=== PATIENT | male | born 1975 | race Caucasian/White ===

== ENCOUNTER 2017-06-02 18:07 | Emergency (ER) | payer MEDICAID, SELFPAY ==
[2017-06-02 18:10] VITALS: BP 149/76; PULSE 111; RESP 20; TEMP 36.9; O2SAT 99; BMI 21.5
--- NOTE | 2017-06-02 18:19 | CT_ITS ---
CT abdomen pelvis wo con CLINICAL INDICATION: Localize left lower quadrant pain with nausea ITS.REASON: abd pain ORDERING PHYSICIAN: Christie Nixon MD PATIENT AGE: 41 years COMPARISON: None TECHNIQUE: Axial images obtained with sagittal and coronal reformats. PROCEDURE: Oral Contrast: None IV Contrast: None . FINDINGS: The lung bases are clear. No focal liver lesion. The gallbladder, pancreas, right adrenal gland, and kidneys have an unremarkable unenhanced CT appearance. Left adrenal gland is somewhat bulky but maintains an adreniform shape. No intestinal obstruction or free air. There is reported appendectomy. No intestinal obstruction or free air is evident. There are scattered air-fluid levels within the small bowel is not significantly distended. There are are thickened small bowel loops in the pelvis. There is a small amount fluid in the pelvis. The findings may be related to ileitis or bowel disease. There are multiple unopacified bowel loops present within the abdomen/pelvis which could obscure or mimic pathology. If symptoms persists, consider repeating exam with IV and oral contrast administration No acute bony anomalies. IMPRESSION: Thickened distal small bowel loops which are in the pelvis consistent with ileitis or inflammatory bowel disease. Scattered small bowel air-fluid levels are present and may be due to ileus. There are multiple unopacified bowel loops present within the abdomen/pelvis which could obscure or mimic pathology. If symptoms persists, consider repeating exam with IV and oral contrast administration
--- NOTE | 2017-06-02 18:37 | HMH.EDABDPAI ---
ED Disposition Clinical Impression: Indirect inguinal hernia, Tobacco use disorder, Cough, Ileitis, Diarrhea Disposition: Still a Patient Condition on Discharge: Fair Instructions: DI for Acute Abdomen Prescriptions: Ondansetron [Zofran 4mg ODT] 4 mg SL Q6HP PRN #8 tab.rapdis PRN Reason: Nausea Dicyclomine HCl [Bentyl 10mg capsule] 10 mg PO Q8HP PRN #21 cap PRN Reason: Cramping metroNIDAZOLE [Flagyl] 500 mg PO Q8 #21 tab Referrals: Provider,Referral, MD [Primary Care Provider] - - Critical Care Critical Care Time: No Attestation: On , the high probability of a clinically significant, sudden or life threatening deterioration of the following system(s) required my full and direct attention, intervention and personal management. The time I documented below is in addition to time spent performing reported procedures but includes the following listed in this critical care notation. Medical Decision Making Vital Signs: 06/02/17 18:10 Temperature 98.5 F Temperature Source Oral Pulse Rate [Right Radial] 111 H Respiratory Rate 20 Blood Pressure [Right Arm] 149/76 Blood Pressure Mean [Right Arm] 100 02 Sat by Pulse Oximetry 99 - Lab Data Lab results reviewed: Yes: I reviewed the patient's lab results. Lab Results 06/02/17 18:19: Urine Color Yellow, Urine Appearance Clear, Urine pH 5.5, Ur Specific [place] >= 1.030, Urine Protein Negative, Urine Glucose (UA) Negative, Urine Ketones Negative, Urine Blood Negative, Urine Nitrate Negative, Urine Bilirubin 1+ A, Urine Urobilinogen 0.2, Ur Leukocyte Esterase Negative, Urine RBC Occasional, Urine WBC 5-10, Ur Squamous Epith Cells Occasional, Urine Bacteria Trace, Hyaline Casts Occasional, Urine Mucus 2+ 06/02/17 18:19: WBC 17.4 H, RBC 4.78, Hgb 14.8, Hct 45.0, MCV 94.0, MCH 30.9, MCHC 32.9, RDW 13.8, Plt Count 757 H, MPV 7.3 L, Neut % (Auto) 81.9 H, Lymph % (Auto) 11.8, [place] % (Auto) 5.6, Eos % (Auto) 0.2, Baso % (Auto) 0.5, Neut # (Auto) 14.3 H, Lymph # (Auto) 2.0, [place] # (Auto) 1.0, Eos # (Auto) 0.0, Baso # (Auto) 0.1 06/02/17 18:19: Sodium 137, Potassium 4.1, Chloride 99, Carbon Dioxide 29, Anion Gap 13.1, BUN 15, Creatinine 0.91, Estimated Creat Clear 102, Estimated GFR 91, Est GFR ( Amer) 111, Glucose 111 H, Calcium 9.0, Total Bilirubin 0.2, AST 21, ALT 59, Alkaline Phosphatase 142 H, Total Protein 7.5, Albumin 2.7 L, Globulin 4.8 H, Albumin/Globulin Ratio 0.6 L, Amylase 28, Lipase 63 L 06/02/17 18:19: Lactic Acid 1.4 Result diagrams: 06/02/17 18:19 06/02/17 18:19 Orders (Tests/Meds): ED MEDICATIONS Generic Name Dose Route Start Last Admin Trade Name Freq PRN Reason Stop Dose Admin Sodium Chloride 1,000 mls @ 999 mls/hr 06/02/17 18:45 06/02/17 18:35 Sod Chlor 0.9% 1000ml Bag IV 06/02/17 19:45 999 mls/hr .Q1H1M NATASHA Administration Metronidazole 100 mls @ 100 mls/hr 06/02/17 19:30 06/02/17 19:26 Flagyl 500mg/100ml Ivpb IV 06/16/17 19:29 100 mls/hr Q8H NATASHA Administration Protocol Discontinued Medications Generic Name Dose Route Start Last Admin Trade Name Freq PRN Reason Stop Dose Admin Sodium Chloride 500 mls @ 999 mls/hr 06/02/17 18:45 06/02/17 18:32 Sod Chlor 0.9% 1000ml Bag IV 06/02/17 19:15 Not Given .Q31M NATASHA Ketorolac Tromethamine 30 mg 06/02/17 18:21 06/02/17 18:31 Toradol 30mg/Ml Vial IV 06/02/17 18:22 30 mg ONCE ONE Administration Morphine Sulfate 2 mg 06/02/17 19:21 06/02/17 19:27 Morphine 2mg/Ml Syringe IV 06/02/17 19:22 2 mg ONCE ONE Administration Ondansetron HCl 4 mg 06/02/17 18:31 06/02/17 18:31 Zofran 4mg/2ml Vial IV 06/02/17 18:32 4 mg ONCE ONE Administration ORDERS Category Date Time Status CT abdomen pelvis wo con Stat Cat Scan 06/02/17 18:19 Taken Complete Blood Count Auto Diff Stat Lab 06/02/17 18:19 Results Diarrhea Panel, PCR Stat Lab 06/02/17 19:30 Ordered Blood Culture Stat Micro 06/02/17 18:19 Received - Zane Inqui
--- NOTE | 2017-06-02 18:40 | ED_ITS ---
ED Disposition Clinical Impression: Indirect inguinal hernia, Tobacco use disorder, Cough, Ileitis, Diarrhea Disposition: Still a Patient Condition on Discharge: Fair Instructions: DI for Acute Abdomen Prescriptions: Ondansetron [Zofran 4mg ODT] 4 mg SL Q6HP PRN #8 tab.rapdis PRN Reason: Nausea Dicyclomine HCl [Bentyl 10mg capsule] 10 mg PO Q8HP PRN #21 cap PRN Reason: Cramping metroNIDAZOLE [Flagyl] 500 mg PO Q8 #21 tab Referrals: Provider,Referral, MD [Primary Care Provider] - - Critical Care Critical Care Time: No Attestation: On , the high probability of a clinically significant, sudden or life threatening deterioration of the following system(s) required my full and direct attention, intervention and personal management. The time I documented below is in addition to time spent performing reported procedures but includes the following listed in this critical care notation. Medical Decision Making Vital Signs: 06/02/17 18:10 Temperature 98.5 F Temperature Source Oral Pulse Rate [Right Radial] 111 H Respiratory Rate 20 Blood Pressure [Right Arm] 149/76 Blood Pressure Mean [Right Arm] 100 02 Sat by Pulse Oximetry 99 - Lab Data Lab results reviewed: Yes: I reviewed the patient's lab results. Lab Results 06/02/17 18:19: Urine Color Yellow, Urine Appearance Clear, Urine pH 5.5, Ur Specific [place] >= 1.030, Urine Protein Negative, Urine Glucose (UA) Negative, Urine Ketones Negative, Urine Blood Negative, Urine Nitrate Negative, Urine Bilirubin 1+ A, Urine Urobilinogen 0.2, Ur Leukocyte Esterase Negative, Urine RBC Occasional, Urine WBC 5-10, Ur Squamous Epith Cells Occasional, Urine Bacteria Trace, Hyaline Casts Occasional, Urine Mucus 2+ 06/02/17 18:19: WBC 17.4 H, RBC 4.78, Hgb 14.8, Hct 45.0, MCV 94.0, MCH 30.9, MCHC 32.9, RDW 13.8, Plt Count 757 H, MPV 7.3 L, Neut % (Auto) 81.9 H, Lymph % ( Auto) 11.8, [place] % (Auto) 5.6, Eos % (Auto) 0.2, Baso % (Auto) 0.5, Neut # (Auto ) 14.3 H, Lymph # (Auto) 2.0, [place] # (Auto) 1.0, Eos # (Auto) 0.0, Baso # (Auto ) 0.1 06/02/17 18:19: Sodium 137, Potassium 4.1, Chloride 99, Carbon Dioxide 29, Anion Gap 13.1, BUN 15, Creatinine 0.91, Estimated Creat Clear 102, Estimated GFR 91, Est GFR ( Amer) 111, Glucose 111 H, Calcium 9.0, Total Bilirubin 0.2, AST 21, ALT 59, Alkaline Phosphatase 142 H, Total Protein 7.5, Albumin 2.7 L, Globulin 4.8 H, Albumin/Globulin Ratio 0.6 L, Amylase 28, Lipase 63 L 06/02/17 18:19: Lactic Acid 1.4 Result diagrams: 06/02/17 18:19 06/02/17 18:19 Orders (Tests/Meds): ED MEDICATIONS Generic Name Dose Route Start Last Admin Trade Name Freq PRN Reason Stop Dose Admin Sodium Chloride 1,000 mls @ 999 mls/hr 06/02/17 18:45 06/02/17 18:35 Sod Chlor 0.9% 1000ml Bag IV 06/02/17 19:45 999 mls/hr .Q1H1M NATASHA Administration Metronidazole 100 mls @ 100 mls/hr 06/02/17 19:30 06/02/17 19:26 Flagyl 500mg/100ml Ivpb IV 06/16/17 19:29 100 mls/hr Q8H NATASHA Administration Protocol Discontinued Medications Generic Name Dose Route Start Last Admin Trade Name Freq PRN Reason Stop Dose Admin Sodium Chloride 500 mls @ 999 mls/hr 06/02/17 18:45 06/02/17 18:32 Sod Chlor 0.9% 1000ml Bag IV 06/02/17 19:15 Not Given .Q31M NATASHA Ketorolac Tromethamine 30 mg 06/02/17 18:21 06/02/17 18:31 Toradol 30mg/Ml Vial IV 06/02/17 18:22 30 mg ONCE ONE Adm
[2017-06-02 18:44] LABS: Microscopic, Urine URINE MICROSCOPIC (MICROSCOPIC)
[2017-06-02 18:48] LABS: Appearance,Urine CLEAR (Clear); Blood, Urine Negative (Negative); Color,Urine YELLOW (Yellow); Glucose,Urine (UA) Negative (Negative); Ketones,Urine Negative (Negative); Leukocyte Esterase,Urine Negative (Negative); Nitrate,Urine Negative (Negative); PH,Urine 5.5 (5.0-8.5); Protein,Urine Negative (Negative); Specific Gravity, Urine >= 1.030 (1.005-1.030); Urobilinogen,Urine 0.2 EU/dl (0.2)
[2017-06-02 18:52] LABS: Bilirubin,Urine 1+ (Negative)
[2017-06-02 19:01] LABS: Basophils # 0.1 K/mm3 (0-0.2); Basophils % 0.5 % (0.1-2.0); Eosinophils % 0.2 % (0.1-12.0); Hemoglobin 14.8 g/dL (14.1-18.0); Lymphocytes % 11.8 K/mm3 (10-50); Mean Corpuscular HGB Conc 32.9 g/dL (31.8-35.4); Mean Corpuscular Hemoglobin 30.9 pg (27.0-31.2); Mean Platelet Volume 7.3 fl (7.4-10.4); Monocytes % 5.6 % (1.7-9.3); Neutrophils # 14.3 K/mm3 (1.8-7.8); Neutrophils % 81.9 % (37.0-80.0); Platelet Count 757 K/mm3 (142-424); Red Blood Count 4.78 M/mm3 (4.60-6.20); Red Cell Distribution Width 13.8 % (11.5-17.5); White Blood Count 17.4 K/mm3 (4.8-10.8)
[2017-06-02 19:04] LABS: MANUAL DIFFERENTIAL MANUAL DIFFERENTIAL (MANUAL DIFF)
[2017-06-02 19:05] LABS: Alanine Aminotransferase 59 U/L (12-78); Albumin Level 2.7 gm/dL (3.4-5.0); Albumin/Globulin Ratio 0.6 (1.1-1.8); Alkaline Phosphatase 142 U/L (46-116); Amylase 28 U/L (25-125); Anion Gap 13.1 mEq/L (5-15); Aspartate Amino Transferase 21 U/L (15-37); Bilirubin,Total 0.2 mg/dL (0.2-1.0); Blood Urea Nitrogen 15 mg/dL (7-18); Carbon Dioxide 29 mmol/L (21.0-32.0); Chloride 99 mmol/L (98-107); Creatinine Clearance Estimated 102 mL/min (0-300); Creatinine,Serum 0.91 mg/dL (0.70-1.30); Estimated Glomerular Filt Rate 91 ml/min (>60); GFR (African American) 111 ML/MIN (>60); Globulin 4.8 gm/dl (1.3-3.2); Glucose 111 mg/dL (74-106); Lipase 63 u/L (73-393); Potassium 4.1 mmoL/L (3.5-5.1); Sodium 137 mmol/L (136-145); Total Protein,Serum 7.5 gm/dL (6.4-8.2)
[2017-06-02 19:12] LABS: Lactic Acid 1.4 mmol/L (0.4-2.0)
[2017-06-02 19:14] LABS: Bacteria,Urine Trace /lpf; Hyaline Casts,Urine Occasional #/lpf (0); Mucus,Urine 2+ /lpf; RBC,Urine Occasional #/hpf (0-3); Squamous Epithelial Cell,Urine Occasional #/hpf (0-5)
[2017-06-02 19:35] VITALS: BP 132/78; PULSE 96; RESP 12; O2SAT 96
[2017-06-02 20:14] LABS: Anisocytosis 1+; Hypochromasia 1+; Lymphocytes % 11 % (10-50); Monocytes % 1 % (2-9); Neutrophils % 88 % (42-76); Platelet Estimate Normal; Total Cells Counted 100
[2017-06-02 21:18] VITALS: BP 135/73; PULSE 83; RESP 12; TEMP 37.1; O2SAT 98
== END 2017-06-02 21:21 | disposition still patient (30) ==
PROVIDERS: Emergency Provider Emergency Medicine; Family Provider Physician Assistant
DX: K40.90 Unilateral inguinal hernia, without obstruction or gangrene, not specified as recurrent (principal); R05 Cough; K52.9 Noninfective gastroenteritis and colitis, unspecified; R19.7 Diarrhea, unspecified; F17.200 Nicotine dependence, unspecified, uncomplicated; F12.10 Cannabis abuse, uncomplicated
CPT/HCPCS: 74176; 80053; 81001; 82150; 83605; 83690; 85007; 85025; 87040; 96365; 96366; 96367; 96374; 96375; 96376; 99283; J2405

== ENCOUNTER → 2017-06-04 15:38 | Outpatient (CLI) | payer MEDICAID, SELFPAY | PROVIDERS: Visit Provider Nurse Practitioner Family | DX: R19.7 Diarrhea, unspecified (principal) ==

== ENCOUNTER 2017-06-12 09:20 | Inpatient (IN) | payer MEDICAID, SELFPAY ==
[2017-06-12 09:28] VITALS: BMI 18.6
[2017-06-12 09:38] VITALS: BP 122/82; PULSE 95; RESP 18; TEMP 36.8; O2SAT 99; BMI 18.6
[2017-06-12 09:50] LABS: Basophils % 0.1 % (0.1-2.0); Eosinophils # 0.2 K/mm3 (0.0-0.4); Eosinophils % 0.8 % (0.1-12.0); Hematocrit 47.7 % (42.0-52.0); Hemoglobin 15.4 g/dL (14.1-18.0); Lymphocytes # 1.8 K/mm3 (0.7-4.5); Lymphocytes % 8.2 K/mm3 (10-50); Mean Corpuscular HGB Conc 32.3 g/dL (31.8-35.4); Mean Corpuscular Hemoglobin 30.6 pg (27.0-31.2); Mean Corpuscular Volume 94.7 fl (80-94); Mean Platelet Volume 7.2 fl (7.4-10.4); Monocytes % 4.4 % (1.7-9.3); Neutrophils # 19.1 K/mm3 (1.8-7.8); Neutrophils % 86.5 % (37.0-80.0); Platelet Count 627 K/mm3 (142-424); Red Blood Count 5.03 M/mm3 (4.60-6.20); Red Cell Distribution Width 14.1 % (11.5-17.5)
[2017-06-12 09:55] LABS: MANUAL DIFFERENTIAL MANUAL DIFFERENTIAL (MANUAL DIFF)
[2017-06-12 09:59] LABS: Amylase 28 U/L (25-125); Blood Urea Nitrogen 10 mg/dL (7-18); Carbon Dioxide 27 mmol/L (21.0-32.0); Chloride 97 mmol/L (98-107); Creatinine Clearance Estimated 82 mL/min (0-300); Creatinine,Serum 0.98 mg/dL (0.70-1.30); Estimated Glomerular Filt Rate 84 ml/min (>60); GFR (African American) 101 ML/MIN (>60); Glucose 119 mg/dL (74-106); Lipase 67 u/L (73-393); Sodium 134 mmol/L (136-145)
--- NOTE | 2017-06-12 10:11 | CT_ITS ---
CT abdomen pelvis w con COMPARISON: CT scan abdomen pelvis 06/02/2017 HISTORY: Abdominal pain, elevated white count previous CT scan suggesting possible inflammatory bowel disease TECHNIQUE: Multiaxial scans obtained from hemidiaphragms to the pelvic floor and were performed with IV and oral contrast. Sagittal coronal reformats were evaluated as well. FINDINGS: The lower lung hernandes are clear. The liver spleen stomach [place] gallbladder appear grossly normal. There is slight enlargement of the left adrenal gland maintaining its adreniform shape, the right adrenal gland is normal. The kidneys are normal in size and show symmetrical function and is no obstructive uropathy or other abnormality. There is good contrast opacification of the small bowel but the areas of possible bowel wall thickening of the distal small bowel seen on the previous study now appears essentially normal. There has been a previous appendectomy. There is contrast mixed with small amount stool in the ascending and transverse colon and partial descending colon. The urinary bladder is decompressed. The lumbar spine and bony pelvis appear normal. IMPRESSION: Apparent interval improvement in the appearance of the distal small bowel loops on the previous study, no definite findings to suggest ileitis at this time and no other significant abnormality is noted
[2017-06-12 10:35] LABS: Microscopic, Urine URINE MICROSCOPIC (MICROSCOPIC)
[2017-06-12 10:36] LABS: Lymphocytes % 10 % (10-50); Monocytes % 6 % (2-9); Neutrophils % 81 % (42-76); Total Cells Counted 100
[2017-06-12 10:37] LABS: Platelet Estimate Marked Increase; RBC Morphology Normal
[2017-06-12 10:40] LABS: Appearance,Urine CLOUDY (Clear); Blood, Urine Negative (Negative); Color,Urine YELLOW (Yellow); Glucose,Urine (UA) Negative (Negative); Ketones,Urine 1+ (Negative); Leukocyte Esterase,Urine Negative (Negative); Nitrate,Urine Negative (Negative); PH,Urine 5.5 (5.0-8.5); Protein,Urine 1+ (Negative); Specific Gravity, Urine >= 1.030 (1.005-1.030); Urobilinogen,Urine 0.2 EU/dl (0.2)
[2017-06-12 10:45] LABS: Bilirubin,Urine Negative (Negative)
[2017-06-12 10:50] LABS: Bacteria,Urine 4+ /lpf; WBC,Urine Occasional #/hpf (0-3)
[2017-06-12 10:51] LABS: Mucus,Urine 3+ /lpf
--- NOTE | 2017-06-12 10:51 | HMH.EDGENADL ---
ED Disposition Clinical Impression: Dehydration, Enteritis, Weight loss Disposition: Still a Patient Condition on Discharge: Fair Referrals: Jhony Roberson MD [Primary Care Provider] - - Critical Care Critical Care Time: No Attestation: On 06/12/17, the high probability of a clinically significant, sudden or life threatening deterioration of the following system(s) required my full and direct attention, intervention and personal management. The time I documented below is in addition to time spent performing reported procedures but includes the following listed in this critical care notation. Medical Decision Making Vital Signs: 06/12/17 09:38 Temperature 98.2 F Temperature Source Oral Pulse Rate [Right Radial] 95 H Respiratory Rate 18 Blood Pressure [Right Arm] 122/82 Blood Pressure Mean [Right Arm] 95 02 Sat by Pulse Oximetry 99 - Lab Data Lab Results 06/12/17 09:35: WBC 22.0 H*, RBC 5.03, Hgb 15.4, Hct 47.7, MCV 94.7 H, MCH 30.6, MCHC 32.3, RDW 14.1, Plt Count 627 H, MPV 7.2 L, Neut % (Auto) 86.5 H, Lymph % (Auto) 8.2 L, [place] % (Auto) 4.4, Eos % (Auto) 0.8, Baso % (Auto) 0.1, Neut # (Auto) 19.1 H, Lymph # (Auto) 1.8, [place] # (Auto) 1.0, Eos # (Auto) 0.2, Baso # (Auto) 0.0, Total Counted 100, Neutrophils % (Manual) 81 H, Lymphocytes % (Manual) 10, Atypical Lymphs % 3.0, Monocytes % (Manual) 6, Platelet Estimate Marked increase, RBC Morphology Normal 06/12/17 09:35: Sodium 134 L, Potassium 4.0, Chloride 97 L, Carbon Dioxide 27, Anion Gap 14.0, BUN 10, Creatinine 0.98, Estimated Creat Clear 82, Estimated GFR 84, Est GFR ( Amer) 101, Glucose 119 H, Amylase 28, Lipase 67 L 06/12/17 09:35: Total Bilirubin 0.2, Direct Bilirubin 0.1, AST 24, ALT 62, Alkaline Phosphatase 127 H, Total Protein 7.7, Albumin 3.0 L 06/12/17 09:35: ESR 37 H 06/12/17 10:25: Urine Color Yellow, Urine Appearance Cloudy, Urine pH 5.5, Ur Specific [place] >= 1.030, Urine Protein 1+, Urine Glucose (UA) Negative, Urine Ketones 1+, Urine Blood Negative, Urine Nitrate Negative, Urine Bilirubin Negative, Urine Urobilinogen 0.2, Ur Leukocyte Esterase Negative, Urine RBC None, Urine WBC Occasional, Ur Squamous Epith Cells 3-5, Urine Bacteria 4+, Urine Mucus 3+ Result diagrams: 06/12/17 09:35 06/12/17 09:35 Orders (Tests/Meds): ED MEDICATIONS Discontinued Medications Generic Name Dose Route Start Last Admin Trade Name Freq PRN Reason Stop Dose Admin Diatrizoate Meglum/Diatrizoate Sod 30 ml 06/12/17 10:15 06/12/17 10:15 Gastrografin 66%-10% 30ml PO 06/12/17 10:16 30 ml ONCE ONE Administration Iopamidol 75 ml 06/12/17 12:19 06/12/17 12:20 [id number]; 75ml Vial IV 06/12/17 12:20 75 ml ONCE ONE Administration Morphine Sulfate 4 mg 06/12/17 10:51 06/12/17 11:00 Morphine 4mg/Ml Syringe IV 06/12/17 10:52 4 mg ONCE ONE Administration Morphine Sulfate 4 mg 06/12/17 11:51 06/12/17 11:54 Morphine 4mg/Ml Syringe IV 06/12/17 11:52 4 mg ONCE ONE Administration Ondansetron HCl 4 mg 06/12/17 10:51 06/12/17 11:00 Zofran 4mg/2ml Vial IV 06/12/17 10:52 4 mg ONCE ONE Administration Sodium Chloride 1,000 ml 06/12/17 10:51 06/12/17 11:00 Sod Chlor 0.9% 1000ml Bag IV 06/12/17 10:52 1,000 ml BOLUS ONE Administration Sodium Chloride 10 ml 06/12/17 12:19 06/12/17 12:20 Rad-Saline Flush 10ml Syringe IV 06/12/17 12:20 10 ml ONCE ONE Administration ORDERS Category Date Time Status CT abdomen pelvis w con Stat Cat Scan 06/12/17 10:11 Taken Diarrhea Panel, PCR Stat Lab 06/12/17 10:52 Ordered Urine Culture Stat Micro 06/12/17 10:25 Received - Zane Inquiry Pt receiving controlled substance: Yes Zane was queried for this patient: No Reason not queried -: Emergent pt cond-no time Risks and benefits of using a controlled substance: were not discussed with pt by me Medical Decision Making Narrative: 1:04 PM: I have discussed the case with Dorita Ortiz,
[2017-06-12 10:52] LABS: Alanine Aminotransferase 62 U/L (12-78); Alkaline Phosphatase 127 U/L (46-116); Aspartate Amino Transferase 24 U/L (15-37); Bilirubin,Direct 0.1 mg/dL (0.0-0.2); Bilirubin,Total 0.2 mg/dL (0.2-1.0); Total Protein,Serum 7.7 gm/dL (6.4-8.2)
[2017-06-12 11:31] LABS: Erythrocyte Sedimentation Rate 37 mm/hr (0-15)
[2017-06-12 13:23] VITALS: BMI 19.1
--- NOTE | 2017-06-12 13:30 | PC.NURSE ---
Pt started to get up and walk outside to go smoke. Informed pt of smoking policy and that this is a non smoking facility. Dr Pollock ordered 21mg Nicotine Patch for patient. Placed on patient at this time. At this time, patient is agreeable to smoking policy and to wear the patch.
[2017-06-12 13:42] LABS: T4 (Thyroxine) 11.2 ug/dl (4.7-13.3); Thyroid Stimulating Hormone 1.43 uIU/ml (0.358-3.740); Triiodothryronine (T3) Uptake 36 % (31-39)
[2017-06-12 14:02] VITALS: BP 145/88; PULSE 80; RESP 16; TEMP 36.9; O2SAT 97
[2017-06-12 14:16] VITALS: BP 110/69; PULSE 78; RESP 16; TEMP 36.9; O2SAT 99
[2017-06-12 16:00] VITALS: BP 120/78; PULSE 80; RESP 18; TEMP 36.7; O2SAT 99
--- NOTE | 2017-06-12 17:46 | PC.NURSE ---
PT IS ALERT AND ORIENTED X4. VSS. NO S/S OF DISTRESS NOTED. IV IS SECURE, PATENT AND INFUSING IVF. PAIN MEDICATION ADMINISTERED PER MAR. NO C/O N/V/D. PT EDUCATED ON NEED FOR STOOL SAMPLE. SAFETY MEASURES IN PLACE. WILL CONTINUE TO MONITOR.
[2017-06-12 20:00] VITALS: BP 104/62; PULSE 83; RESP 18; TEMP 37; O2SAT 98
[2017-06-12 21:00] VITALS: O2SAT 98
[2017-06-13 04:00] VITALS: BP 98/63; PULSE 78; RESP 16; TEMP 37.1; O2SAT 98
--- NOTE | 2017-06-13 04:26 | PC.NURSE ---
PATIENT HAS SLEPT ON AND OFF THIS SHIFT. HE HAS C/O ABDOMINAL PAIN X2 THIS SHIFT AND RECEIVED PRN PAIN MEDICATION WHICH HE STATED WAS EFFECTIVE. NO C/O NAUSEA/VOMITING. AMBULATES IN ROOM TO BATHROOM INDEPENDENTLY. NO OTHER PROBLEMS NOTED AT THIS TIME. VSS. WILL CONTINUE TO MONITOR. SAFETY MEASURES IN PLACE, CALL LIGHT IN REACH.
[2017-06-13 08:00] VITALS: BP 135/81; PULSE 89; RESP 18; TEMP 36.9; O2SAT 100
--- NOTE | 2017-06-13 08:44 | HMH.HP ---
*Admission Date: 06/12/17 *Chief complaint: abd pain *History of present illness: this wm with abd pain with nonbldy diarrhea with dec po intake and had not improved as op rx-e patient has been sick for 4-6 weeks with abdominal pain, generalized, and diarrhea. He says no blood in the diarrhea. No vomiting. No fever. Weight loss of approximately 25 pounds. Was recently seen in the emergency department 06/02/17 for these symptoms. He had a CT scan that showed ileitis and a hernia. He has been treated with Flagyl. He has followed up with his primary care provider. Symptoms have worsened. He is having much difficulty eating. Eating causes increased abdominal pain and diarrhea. [facility] [place] History I have reviewed the patient's past medical history: Yes Medical History: Reports:: Seizures Denies:: Cancer, Diabetes Mellitus Type 1, Diabetes Mellitus Type 2, MRSA Other Surgeries: Yes: Appendectomy Amputation: No Fractures: Yes - *Social History Educational Level: Attended High School Smoking Status: Current every day smoker Tobacco Type: cigarettes # Packs/Day (cigarettes): 1 #Yrs smoked (if former smoker): 2 Alcohol Intake: never Alcohol Intake Frequency:: a few times a month Substance Use Type: marijuana Occupational Status: unemployed Housing: house Household Members: spouse - Psychiatric History Expresses thoughts of harming self/others: None Suicide Plan Description: No Plan Review of Systems - Review of Systems Review of systems:: pertinent systems reviewed and negative unless documented below - Constitutional Reports fatigue, Reports lack of energy, Reports weight loss, Denies fever(s) - Eyes Denies change in vision - ENT Denies sore throat - *Cardiovascular Denies chest pain at rest - *Respiratory Denies cough - *Gastrointestinal Reports nausea - *Genitourinary Denies blood in urine - *Musculoskeletal Reports body aches, Denies joint pain - Integumentary/Breasts Denies rash - *Neurologic Reports weakness, Denies confusion, Denies localized weakness - Psychiatric Denies anxiety Meds Home Medications Medication Instructions Recorded Confirmed Type Phenytoin Sodium Extended 300 mg PO BID 06/12/17 06/12/17 History [Dilantin] Allergies Allergy/AdvReac Type Severity Reaction Status Date / Time No Known Allergies Allergy Verified 06/12/17 09:44 Exam Vital signs and Labs for Last 24 Hours: Temp Pulse Resp BP Pulse Ox 98.5 F 89 18 135/81 100 06/13/17 08:00 06/13/17 08:00 06/13/17 08:00 06/13/17 08:00 06/13/17 08:00 I & O for Last 24 hours: Intake & Output 06/10/17 06/11/17 06/12/17 06/13/17 11:59 11:59 11:59 11:59 Intake Total 1863 / 1863 Balance 1863 / 1863 Weight 129 lb 4.112 oz - Constitutional no acute distress, thin - *Routine HEENT Exam Head: Present: normocephalic, atraumatic Eye: Present: EOMI, PERRL. Absent: conjunctival icterus ENT: Present: mucous membranes dry - *Routine Neck Exam Absent: JVD - *Routine Respiratory Exam Present: CTA bilaterally - *Routine Cardiovascular Exam Present: RRR. Absent: murmur - *Routine Abdominal Exam Present: soft, tenderness. Absent: rebound - *Routine Extremities Exam Absent: edema - *Routine Skin Exam Present: dry - *Routine Neurological Exam Present: alert, oriented X3, CN II-XII intact - Routine Psychiatric Exam Present: normal affect Assessment and Plan (1) Enteritis Current visit: Yes Status: Acute Category: Medical Code(s): K52.9 - Noninfective gastroenteritis and colitis, unspecified (2) Tobacco use disorder Current visit: No Status: Acute Category: Medical Code(s): F17.200 - Nicotine dependence, unspecified, uncomplicated
[2017-06-13 08:59] LABS: Basophils % 0.2 % (0.1-2.0); Eosinophils # 0.2 K/mm3 (0.0-0.4); Hematocrit 43.9 % (42.0-52.0); Lymphocytes # 2.1 K/mm3 (0.7-4.5); Lymphocytes % 11.7 K/mm3 (10-50); Mean Corpuscular HGB Conc 31.9 g/dL (31.8-35.4); Mean Corpuscular Hemoglobin 30.5 pg (27.0-31.2); Mean Corpuscular Volume 95.5 fl (80-94); Mean Platelet Volume 7.2 fl (7.4-10.4); Monocytes % 5.9 % (1.7-9.3); Neutrophils # 14.3 K/mm3 (1.8-7.8); Neutrophils % 81.2 % (37.0-80.0); Platelet Count 563 K/mm3 (142-424); White Blood Count 17.6 K/mm3 (4.8-10.8)
[2017-06-13 09:01] LABS: MANUAL DIFFERENTIAL MANUAL DIFFERENTIAL (MANUAL DIFF)
[2017-06-13 09:02] VITALS: O2SAT 95
[2017-06-13 09:13] LABS: Anion Gap 11.3 mEq/L (5-15); Blood Urea Nitrogen 6 mg/dL (7-18); Carbon Dioxide 29 mmol/L (21.0-32.0); Chloride 101 mmol/L (98-107); Creatinine Clearance Estimated 77 mL/min (0-300); Creatinine,Serum 1.04 mg/dL (0.70-1.30); Estimated Glomerular Filt Rate 78 ml/min (>60); GFR (African American) 95 ML/MIN (>60); Glucose 125 mg/dL (74-106); Potassium 4.3 mmoL/L (3.5-5.1); Sodium 137 mmol/L (136-145)
[2017-06-13 10:41] LABS: Eosinophils % 2 % (0-3); Lymphocytes % 16 % (10-50); Monocytes % 3 % (2-9); Neutrophils % 77 % (42-76); Total Cells Counted 100
[2017-06-13 10:45] LABS: Poikilocytosis 1+; Stomatocytes 1+
[2017-06-13 10:46] LABS: Platelet Estimate Moderate Increase
[2017-06-13 11:12] LABS: Adenovirus F 40/41, stool Not Detected (NotDetected); Astrovirus Not Detected (NotDetected); Campylobacter Not Detected (NotDetected); Clostridium Difficile A/B, PCR Not Detected (NotDetected); Cryptosporidium Not Detected (NotDetected); Cyclospora Cayetanesis Not Detected (NotDetected); Entamoeba histolytica Not Detected (NotDetected); Enteroaggregative E coli Not Detected (NotDetected); Enterotoxigenic E coli Not Detected (NotDetected); Giardia lamblia Not Detected (NotDetected); Norovirus Not Detected (NotDetected); Plesimonas Shigalloides, PCR Not Detected (NotDetected); Rotavirus A Not Detected (NotDetected); Salmonella, PCR Not Detected (NotDetected); Sapovirus Not Detected (NotDetected); Shiga-like toxin E coli Not Detected (NotDetected); Shigella Enterovasive E coli Not Detected (NotDetected); Vibrio Cholerae Not Detected (NotDetected); Vibrio, PCR Not Detected (NotDetected); Yersinia Entercolitica, PCR Not Detected (NotDetected)
--- NOTE | 2017-06-13 12:10 | HMH.PHAVTE ---
[facility] Pharm[facility] VTE Monitoring - Patient Demographics Admission date: 06/12/17 Report Date: 06/13/17 Time: 12:10 Allergies/Adverse Reactions: Patient Allergies No Known Allergies Allergy (Verified 06/12/17 09:44) Height: 1.75 m Weight: 58.63 kg Patient Problems: Current Active Problems Dehydration (Acute) Enteritis (Acute) Weight loss (Acute) - VTE Risk Labs: VTE Related Lab Results Hgb 14.0 g/dL (14.1-18.0) L 06/13/17 08:50 Hct 43.9 % (42.0-52.0) 06/13/17 08:50 Plt Count 563 K/mm3 (142-424) H 06/13/17 08:50 BUN 6 mg/dL (7-18) L D 06/13/17 08:50 Creatinine 1.04 mg/dL (0.70-1.30) 06/13/17 08:50 Estimated Creat Clear 77 mL/min (0-300) 06/13/17 08:50 Was VTE Risk Assessment Performed: Yes VTE Score: 1 VTE Risk Level: Very Low Risk - Prophylaxis VTE Prophylaxis Ordered?: Yes Types of VTE Prophylaxis: TEDS Knee High Location of Applied Device: Bilateral Lower Extremeties
[2017-06-13 13:05] LABS: Enteropathogenic E coli Detected (NotDetected)
[2017-06-13 15:52] VITALS: BP 134/78; PULSE 83; RESP 18; TEMP 37.1; O2SAT 99
[2017-06-13 20:25] VITALS: O2SAT 99
[2017-06-14] VITALS: BP 136/88; PULSE 83; RESP 20; TEMP 37.4; O2SAT 97
--- NOTE | 2017-06-14 05:13 | PC.NURSE ---
0200 PT CHECK IS CHARTED UNDER 0300, D/T TIME CHANGE. Siri CONWAY, SRNA
--- NOTE | 2017-06-14 05:51 | PC.NURSE ---
PT HAS C/O OF ABDOMINAL DISCOMFORT THIS SHIFT. HE STATES IT IS A CRAMPING, CONSTANT PAIN. MD WAS NOTIFIED AND PAIN MEDICATION WAS CHANGED FROM MORPHINE TO STADOL. PT IS CONCERNED ABOUT HIS ANIMALS AT HOME AND IS CONCERNED ABOUT HOW LONG HE WILL HAVE TO STAY. HE IS THINKING ABOUT GOING HOME. MD IS AWARE. FAMILY IS AT BEDSIDE. NO OTHER CONCERNS AT THIS TIME. WILL CONTINUE TO MONITOR.
[2017-06-14 07:51] VITALS: BP 122/82; PULSE 74; RESP 18; TEMP 37; O2SAT 99
[2017-06-14 07:58] LABS: Eosinophils # 0.1 K/mm3 (0.0-0.4); Mean Platelet Volume 6.8 fl (7.4-10.4); Red Cell Distribution Width 14.1 % (11.5-17.5)
[2017-06-14 08:00] VITALS: O2SAT 98
[2017-06-14 08:07] LABS: Basophils % 0.1 % (0.1-2.0); Eosinophils % 0.3 % (0.1-12.0); Hematocrit 38.5 % (42.0-52.0); Lymphocytes # 1.7 K/mm3 (0.7-4.5); Lymphocytes % 9.8 K/mm3 (10-50); Mean Corpuscular HGB Conc 32.1 g/dL (31.8-35.4); Mean Corpuscular Hemoglobin 30.2 pg (27.0-31.2); Mean Corpuscular Volume 93.9 fl (80-94); Monocytes # 0.8 K/mm3 (0.1-1.0); Monocytes % 4.7 % (1.7-9.3); Neutrophils # 14.7 K/mm3 (1.8-7.8); Neutrophils % 85.1 % (37.0-80.0); Platelet Count 520 K/mm3 (142-424); White Blood Count 17.2 K/mm3 (4.8-10.8)
[2017-06-14 08:09] LABS: MANUAL DIFFERENTIAL MANUAL DIFFERENTIAL (MANUAL DIFF)
[2017-06-14 08:27] LABS: Lymphocytes % 4 % (10-50); Monocytes % 6 % (2-9); Neutrophils % 90 % (42-76); RBC Morphology Normal; Total Cells Counted 100
[2017-06-14 08:28] LABS: Platelet Estimate Slight Increase
[2017-06-14 08:40] LABS: Hemoglobin 12.4 g/dL (14.1-18.0)
--- NOTE | 2017-06-14 08:44 | CT_ITS ---
CT abdomen pelvis w con Ordering Physician: Jhony Roberson MD Patient Age: 41 years: Male HISTORY: ITS.REASON: abd pain - proressive Lower abdominal pain 3 days. Pain after eating . TECHNIQUE: Helical CT scanning performed through the abdomen pelvis with diluted Gastroview oral contrast as well as IV contrast 75 cc [id number] utilized. From the acquired images reconstructed axial, coronal and sagittal images performed on CT workstation COMPARISON : Previous CT abdomen pelvis 06/12/17 with contrast; & and 06/02/2017 without contrast. FINDINGS Lung bases clear heart normal size Abdomen. Liver unremarkable. The pancreas and spleen unremarkable. Adrenals unremarkable. Kidneys enhance normally no obstruction or calculi.. GI TRACT.: Enteric contrast is seen throughout the entire large and small bowel.. Small bowel upper normal caliber a most generous at pelvis and the large bowel is mildly distended with prominent liquid stool seen throughout including liquid stool at rectum.-Would anticipate episode of severe diarrhea in part due to the Gastroview contrast cathartic effect. When compared to 06/12/2017 there is increased free fluid seen in the abdomen and pelvis today. We began superiorly where note thin collection of at inferior aspect of Morison's pouch and continuing along the right lobe of liver, with scant wispy fluid along right paracolic gutter. There is also hint of trace scant fluid at just inferior to left left kidney & spleen, faintly outlining and tracking along left paracolic gutter. At the mid and upper abdomen the fat between adjacent to the bowel loops is fairly well-defined and we see no wall thickening. However with today's study bowel loops are at the lower pelvis is is obscured..-I suspect this mainly reflects increased fluid between the bowel loops in the pelvis along with increased mesenteric edema.. May also reflect some wall thickening these borderline distended distal small bowel loops here throughout the lower pelvis. We do see some areas of minimal free fluid at the lower pelvic basin-for example is seen to the left pelvic basin axial image 100-98. Included pelvic basin also evident on sagittal image 58 the left; and 45 to the right left.. There is generalized mild edema throughout the mesentery throughout the entire abdomen and pelvis. The terminal ileum itself does not appear to be thickened or inflamed . The appendix is not discretely visualized but I see no focal findings ingested appendicitis. Aorta with circumferential low-density wall thickening most likely reflecting diffuse low-density atheromatous plaque. However on today's study the wall the aorta is less well delineated but this may be due to technique. I would suggest a follow-up CT with contrast within the next 2 face 3 days days to the again evaluate this patient if no improvement. Possibly with a higher volume contrast to better evaluate aorta. IMPRESSION========= 1. Progressive free fluid abdomen and pelvis since 06/12/2017:. Scant Fluid now evident at inferior Morison's pouch, with trace fluid along the gutters bilaterally; & increased throughout pelvic basin bilateral and between pelvic bowel loops.. Suspect fluid between bowel loops, along with mesentery edemaobscure the fat between bowel loops now at pelvis. (with possibly mild bowel wall thickening at at these pelvic small bowel loops as well) . 2..Slight increased diffuse mesenteric edema is slight increase since 06/12/2017 3. Prominent liquid stool rectum and throughout entire mildly distended large bowel.Impending severe diarrhea anticipated. 4. Note: terminal ileum itself does not appear to be thickened or specifically inflamed. The Appendix is not discretely visualized on today but I see no good evidence of
--- NOTE | 2017-06-14 08:46 | HMH.ACPN2 ---
Internal Medicine - PN: Subj *Date: 06/14/17 *Time: 08:46 Interval history: still with abd pain and dec po intake - has loose stool but no diarrhea Exam Vital signs and Labs for Last 24 Hours: Temp Pulse Resp BP Pulse Ox 98.6 F 74 18 122/82 99 06/14/17 07:51 06/14/17 07:51 06/14/17 07:51 06/14/17 07:51 06/14/17 07:51 Laboratory Results - last 24 hr 06/13/17 08:50: WBC 17.6 H, RBC 4.60, Hgb 14.0 L, Hct 43.9, MCV 95.5 H, MCH 30.5, MCHC 31.9, RDW 14.0, Plt Count 563 H, MPV 7.2 L, Neut % (Auto) 81.2 H, Lymph % (Auto) 11.7, [place] % (Auto) 5.9, Eos % (Auto) 1.0, Baso % (Auto) 0.2, Neut # (Auto) 14.3 H, Lymph # (Auto) 2.1, [place] # (Auto) 1.0, Eos # (Auto) 0.2, Baso # (Auto) 0.0, Total Counted 100, Neutrophils % (Manual) 77 H, Lymphocytes % (Manual) 16, Atypical Lymphs % 2.0, Monocytes % (Manual) 3, Eosinophils % (Manual) 2, Platelet Estimate Moderate increase, Poikilocytosis 1+, Stomatocytes 1+ 06/13/17 08:50: Sodium 137, Potassium 4.3, Chloride 101, Carbon Dioxide 29, Anion Gap 11.3, BUN 6 L D, Creatinine 1.04, Estimated Creat Clear 77, Estimated GFR 78, Est GFR ( Amer) 95, Glucose 125 H, Phenytoin 4.0 L 06/13/17 11:00: Stl Aeromonas (PCR) Not detected, Stl C. cayetanensis PCR Not detected, Stool Rotavirus (PCR) Not detected, Stl Adenov F 40/41 PCR Not detected, Stool Astrovirus (PCR) Not detected, Stool Campylobacter PCR Not detected, Stl C.difficile Tox PCR Not detected, Stool Cryptosporidium PCR Not detected, Stl E.coli Shiga Tox PCR Not detected, Stool E coli O157 PCR Not detected, Stl Enterotoxigenic E PCR Not detected, Stool EPEC (PCR) Detected A, Stool EAEC (PCR) Not detected, Stl E. histolytica PCR Not detected, Stool Giardia Lamblia PCR Not detected, Stool Salmonella PCR Not detected, Stool Sapovirus (PCR) Not detected, Stl P. shigelloides PCR Not detected, Stl Shigella/EIEC PCR Not detected, St Y.enterocolitica PCR Not detected, Stool Vibrio (PCR) Not detected, Stl Vibrio cholerae PCR Not detected, Stl Norovirus GI/GII PCR Not detected 06/14/17 07:45: WBC 17.2 H, RBC 4.10 L, Hgb 12.4 L D, Hct 38.5 L, MCV 93.9, MCH 30.2, MCHC 32.1, RDW 14.1, Plt Count 520 H, MPV 6.8 L, Neut % (Auto) 85.1 H, Lymph % (Auto) 9.8 L, [place] % (Auto) 4.7, Eos % (Auto) 0.3, Baso % (Auto) 0.1, Neut # (Auto) 14.7 H, Lymph # (Auto) 1.7, [place] # (Auto) 0.8, Eos # (Auto) 0.1, Baso # (Auto) 0.0, Total Counted 100, Neutrophils % (Manual) 90 H, Lymphocytes % (Manual) 4 L, Monocytes % (Manual) 6, Platelet Estimate Slight increase, RBC Morphology Normal I & O for Last 24 hours: Intake & Output 06/11/17 06/12/17 06/13/17 06/14/17 11:59 11:59 11:59 12:59 Intake Total 2062 / 2372 Balance 2062 / 2372 Weight 129 lb 4.112 oz 129 lb 4.112 oz - Constitutional no acute distress - *Routine HEENT Exam Head: Present: normocephalic Eye: Present: EOMI, PERRL. Absent: conjunctival icterus ENT: Present: mucous membranes dry - *Routine Neck Exam Present: supple - *Routine Respiratory Exam Absent: respiratory distress - *Routine Cardiovascular Exam Present: RRR - *Routine Abdominal Exam Present: soft, tenderness. Absent: distended, rebound - *Routine Extremities Exam Absent: calf tenderness - *Routine Skin Exam Present: intact - *Routine Neurological Exam Present: alert, oriented X3, CN II-XII intact - Routine Psychiatric Exam Present: normal affect Assessment and Plan (1) Enteritis Current visit: Yes Status: Acute Category: Medical Code(s): K52.9 - Noninfective gastroenteritis and colitis, unspecified (2) Tobacco use disorder Current visit: No Status: Acute Category: Medical Code(s): F17.200 - Nicotine dependence, unspecified, uncomplicated
--- NOTE | 2017-06-14 08:49 | P.PN_ITS ---
Internal Medicine - PN: Subj *Date: 06/14/17 *Time: 08:46 Interval history: still with abd pain and dec po intake - has loose stool but no diarrhea Exam Vital signs and Labs for Last 24 Hours: Temp Pulse Resp BP Pulse Ox 98.6 F 74 18 122/82 99 06/14/17 07:51 06/14/17 07:51 06/14/17 07:51 06/14/17 07:51 06/14/17 07:51 Laboratory Results - last 24 hr 06/13/17 08:50: WBC 17.6 H, RBC 4.60, Hgb 14.0 L, Hct 43.9, MCV 95.5 H, MCH 30.5 , MCHC 31.9, RDW 14.0, Plt Count 563 H, MPV 7.2 L, Neut % (Auto) 81.2 H, Lymph % (Auto) 11.7, [place] % (Auto) 5.9, Eos % (Auto) 1.0, Baso % (Auto) 0.2, Neut # ( Auto) 14.3 H, Lymph # (Auto) 2.1, [place] # (Auto) 1.0, Eos # (Auto) 0.2, Baso # ( Auto) 0.0, Total Counted 100, Neutrophils % (Manual) 77 H, Lymphocytes % (Manual ) 16, Atypical Lymphs % 2.0, Monocytes % (Manual) 3, Eosinophils % (Manual) 2, Platelet Estimate Moderate increase, Poikilocytosis 1+, Stomatocytes 1+ 06/13/17 08:50: Sodium 137, Potassium 4.3, Chloride 101, Carbon Dioxide 29, Anion Gap 11.3, BUN 6 L D, Creatinine 1.04, Estimated Creat Clear 77, Estimated GFR 78, Est GFR ( Amer) 95, Glucose 125 H, Phenytoin 4.0 L 06/13/17 11:00: Stl Aeromonas (PCR) Not detected, Stl C. cayetanensis PCR Not detected, Stool Rotavirus (PCR) Not detected, Stl Adenov F 40/41 PCR Not detected, Stool Astrovirus (PCR) Not detected, Stool Campylobacter PCR Not detected, Stl C.difficile Tox PCR Not detected, Stool Cryptosporidium PCR Not detected, Stl E.coli Shiga Tox PCR Not detected, Stool E coli O157 PCR Not detected, Stl Enterotoxigenic E PCR Not detected, Stool EPEC (PCR) Detected A, Stool EAEC (PCR) Not detected, Stl E. histolytica PCR Not detected, Stool Giardia Lamblia PCR Not detected, Stool Salmonella PCR Not detected, Stool Sapovirus (PCR) Not detected, Stl P. shigelloides PCR Not detected, Stl Shigella /EIEC PCR Not detected, St Y.enterocolitica PCR Not detected, Stool Vibrio (PCR ) Not detected, Stl Vibrio cholerae PCR Not detected, Stl Norovirus GI/GII PCR Not detected 06/14/17 07:45: WBC 17.2 H, RBC 4.10 L, Hgb 12.4 L D, Hct 38.5 L, MCV 93.9, MCH 30.2, MCHC 32.1, RDW 14.1, Plt Count 520 H, MPV 6.8 L, Neut % (Auto) 85.1 H, Lymph % (Auto) 9.8 L, [place] % (Auto) 4.7, Eos % (Auto) 0.3, Baso % (Auto) 0.1, Neut # (Auto) 14.7 H, Lymph # (Auto) 1.7, [place] # (Auto) 0.8, Eos # (Auto) 0.1, Baso # (Auto) 0.0, Total Counted 100, Neutrophils % (Manual) 90 H, Lymphocytes % (Manual) 4 L, Monocytes % (Manual) 6, Platelet Estimate Slight increase, RBC Morphology Normal I & O for Last 24 hours: Intake & Output 06/11/17 06/12/17 06/13/17 06/14/17 11:59 11:59 11:59 12:59 Intake Total 2062 / 2372 Balance 2062 / 2372 Weight 129 lb 4.112 oz 129 lb 4.112 oz - Constitutional no acute distress - *Routine HEENT Exam Head: Present: normocephalic Eye: Present: EOMI, PERRL. Absent: conjunctival icterus ENT: Present: mucous membranes dry - *Routine Neck Exam Present: supple - *Routine Respiratory Exam Absent: respiratory distress - *Routine Cardiovascular Exam Present: RRR - *Routine Abdominal Exam Present: soft, tenderness. Absent: distended, rebound - *Routine Extremities Exam Absent: calf tenderness - *Routine Skin Exam Present: intact - *Routine Neurological Exam Present: alert, oriented X3, CN II-XII intact - Routine Psychiatric Exam Present: normal affect Assessment and Plan (1) Enteritis Current visit: Yes Status: Acute Category: Medical Code(s): K52.9 - Nonin
[2017-06-14 09:12] LABS: Lipase 52 u/L (73-393)
[2017-06-14 09:15] LABS: Alanine Aminotransferase 50 U/L (12-78); Albumin Level 2.1 gm/dL (3.4-5.0); Albumin/Globulin Ratio 0.6 (1.1-1.8); Alkaline Phosphatase 100 U/L (46-116); Anion Gap 7.8 mEq/L (5-15); Aspartate Amino Transferase 21 U/L (15-37); Bilirubin,Total 0.1 mg/dL (0.2-1.0); Blood Urea Nitrogen 5 mg/dL (7-18); Calcium 8.1 mg/dL (8.5-10.1); Carbon Dioxide 27 mmol/L (21.0-32.0); Chloride 103 mmol/L (98-107); Creatinine Clearance Estimated 116 mL/min (0-300); Creatinine,Serum 0.69 mg/dL (0.70-1.30); Estimated Glomerular Filt Rate 126 ml/min (>60); GFR (African American) 152 ML/MIN (>60); Globulin 3.5 gm/dl (1.3-3.2); Glucose 97 mg/dL (74-106); Potassium 3.8 mmoL/L (3.5-5.1); Sodium 134 mmol/L (136-145); Total Protein,Serum 5.6 gm/dL (6.4-8.2)
[2017-06-14 09:53] LABS: Erythrocyte Sedimentation Rate 32 mm/hr (0-15)
[2017-06-14 15:54] VITALS: BP 125/88; PULSE 76; RESP 18; TEMP 37.2; O2SAT 98
[2017-06-14 18:00] VITALS: O2SAT 86
[2017-06-14 20:00] VITALS: BP 141/86; PULSE 89; RESP 18; TEMP 37.1; O2SAT 98
[2017-06-14 20:50] VITALS: BMI 19.1
[2017-06-15 04:00] VITALS: BP 110/69; PULSE 85; RESP 18; TEMP 37; O2SAT 98
--- NOTE | 2017-06-15 04:41 | PC.NURSE ---
PT RESTED BETTER THIS SHIFT. PT C/O OF ABD PAIN X2, DATA SUPPORT ANALYST PER MAR. PT REMAINS NPO. VSS. MEDS ADMIN PER MAR. NO OTHER CONCERNS AT THIS TIME. WILL CONT. TO MONITOR.
--- NOTE | 2017-06-15 07:24 | PC.NURSE ---
REPORT GIVEN TO Katya BRUCE RN
--- NOTE | 2017-06-15 07:27 | PC.NURSE ---
Room air of 86%@ 1800 per Michael De Jesus
[2017-06-15 08:00] VITALS: BP 104/66; PULSE 80; RESP 16; TEMP 36.9; O2SAT 96
--- NOTE | 2017-06-15 09:48 | PC.NURSE ---
VINAY DOYLE WITH DR. NEFF IN TO SPEAK WITH THE PATIENT AT THIS TIME.
--- NOTE | 2017-06-15 10:17 | HMH.CONS ---
<Janeth Witt - Last Filed: 06/15/17 10:17> *Admission Date: 06/12/17 *Chief complaint: Diarrhea/ABD pain *History of present illness: this wm with abd pain with nonbldy diarrhea with dec po intake and had not improved as op rx-e patient has been sick for 4-6 weeks with abdominal pain, generalized, and diarrhea. He says no blood in the diarrhea. No vomiting. No fever. Weight loss of approximately 25 pounds. Was recently seen in the emergency department 06/02/17 for these symptoms. He had a CT scan that showed ileitis and a hernia. He has been treated with Flagyl. He has followed up with his primary care provider. Symptoms have worsened. He is having much difficulty eating. Eating causes increased abdominal pain and diarrhea. GI Consulted. Pt did have positive Enteropathogienic E. Coli per PCR panel on 06/14. The pt has been NPO and treated symptomatically with IV fludis. No hematochezia, melena or mucus. The pt is pain free at the moment but says he has severe cramping with any food or liquids. No FMH of IBD or Colon ca. The pt did have a stroke a few years ago. [facility] History Medical History: Reports:: Seizures Denies:: Cancer, Diabetes Mellitus Type 1, Diabetes Mellitus Type 2, MRSA Other Surgeries: Yes: Appendectomy Amputation: No Fractures: Yes - *Social History Educational Level: Attended High School Smoking Status: Current every day smoker Tobacco Type: cigarettes # Packs/Day (cigarettes): 1 #Yrs smoked (if former smoker): 2 Alcohol Intake: never Alcohol Intake Frequency:: a few times a month Substance Use Type: marijuana Occupational Status: unemployed Housing: house Household Members: spouse - Psychiatric History Expresses thoughts of harming self/others: None Suicide Plan Description: No Plan Review of Systems - Constitutional Reports anorexia, Reports lack of energy, Reports weight loss - *Gastrointestinal Reports abdominal pain, Reports change in bowel habits, Reports cramping, Reports loose stools - *Neurologic Reports weakness, Denies confusion, Denies localized weakness Meds Home Medications Medication Instructions Recorded Confirmed Type Phenytoin Sodium Extended 300 mg PO BID 06/12/17 06/12/17 History [Dilantin] Allergies Allergy/AdvReac Type Severity Reaction Status Date / Time No Known Allergies Allergy Verified 06/12/17 09:44 Exam Vital signs and Labs for Last 24 Hours: Temp Pulse Resp BP Pulse Ox 98.4 F 80 16 104/66 96 06/15/17 08:00 06/15/17 08:00 06/15/17 08:00 06/15/17 08:00 06/15/17 08:00 I & O for Last 24 hours: Intake & Output 06/12/17 06/13/17 06/14/17 06/15/17 22:59 22:59 23:59 23:59 Intake Total 1224 / 1224 Balance 1224 / 1224 Weight Internal Medicine - CN: Reslt - Labs CBC & Chem 7: 06/14/17 07:45 06/14/17 07:45 Assessment and Plan (1) Enteritis Current visit: Yes Status: Acute Category: Medical Code(s): K52.9 - Noninfective gastroenteritis and colitis, unspecified EPEC: usually self limiting, however, given duration of symptoms and wt loss would recommend outpt colonoscopy once pt has stabilized. Would like pt to be scheduled for out pt follow up in specialty clinic. Please advance diet as tolerate and premedicate with Bentyl 10mg. Start on FiberCon 2 tabs daily and daily probiotics with Align probiotic or Florastor. Thanks (2) Tobacco use disorder Current visit: No Status: Acute Category: Medical Code(s): F17.200 - Nicotine dependence, unspecified, uncomplicated <Eliezer Titus - Last Filed: 06/15/17 14:26> *History of present illness: Enteropathogenic E. coli. There is sensitivity to many antibiotics for E. coli but there is a groin amount of resistance. There is a plenty of research showing that treatment of E. coli with antibiotics may not improve the outcome of the disease. I would recommend symptomatic treatment with IV fluids as well as low residue diet, probio
--- NOTE | 2017-06-15 10:21 | P.CONS_ITS ---
<Janeth Witt - Last Filed: 06/15/17 10:17> *Admission Date: 06/12/17 *Chief complaint: Diarrhea/ABD pain *History of present illness: this wm with abd pain with nonbldy diarrhea with dec po intake and had not improved as op rx-e patient has been sick for 4-6 weeks with abdominal pain, generalized, and diarrhea. He says no blood in the diarrhea. No vomiting. No fever. Weight loss of approximately 25 pounds. Was recently seen in the emergency department 06/02/17 for these symptoms. He had a CT scan that showed ileitis and a hernia. He has been treated with Flagyl. He has followed up with his primary care provider. Symptoms have worsened. He is having much difficulty eating. Eating causes increased abdominal pain and diarrhea. GI Consulted. Pt did have positive Enteropathogienic E. Coli per PCR panel on . The pt has been NPO and treated symptomatically with IV fludis. No hematochezia, melena or mucus. The pt is pain free at the moment but says he has severe cramping with any food or liquids. No FMH of IBD or Colon ca. The pt did have a stroke a few years ago. [facility] History Medical History: Reports:: Seizures Denies:: Cancer, Diabetes Mellitus Type 1, Diabetes Mellitus Type 2, MRSA Other Surgeries: Yes: Appendectomy Amputation: No Fractures: Yes - *Social History Educational Level: Attended High School Smoking Status: Current every day smoker Tobacco Type: cigarettes # Packs/Day (cigarettes): 1 #Yrs smoked (if former smoker): 2 Alcohol Intake: never Alcohol Intake Frequency:: a few times a month Substance Use Type: marijuana Occupational Status: unemployed Housing: house Household Members: spouse - Psychiatric History Expresses thoughts of harming self/others: None Suicide Plan Description: No Plan Review of Systems - Constitutional Reports anorexia, Reports lack of energy, Reports weight loss - *Gastrointestinal Reports abdominal pain, Reports change in bowel habits, Reports cramping, Reports loose stools - *Neurologic Reports weakness, Denies confusion, Denies localized weakness Meds Home Medications Medication Instructions Recorded Confirmed Type Phenytoin Sodium Extended 300 mg PO BID 06/12/17 06/12/17 History [Dilantin] Allergies Allergy/AdvReac Type Severity Reaction Status Date / Time No Known Allergies Allergy Verified 06/12/17 09:44 Exam Vital signs and Labs for Last 24 Hours: Temp Pulse Resp BP Pulse Ox 98.4 F 80 16 104/66 96 06/15/17 08:00 06/15/17 08:00 06/15/17 08:00 06/15/17 08:00 06/15/17 08:00 I & O for Last 24 hours: Intake & Output 06/12/17 06/13/17 06/14/17 06/15/17 22:59 22:59 23:59 23:59 Intake Total 1224 / 1224 Balance 1224 / 1224 Weight Internal Medicine - CN: Reslt - Labs CBC & Chem 7: 06/14/17 07:45 06/14/17 07:45 Assessment and Plan (1) Enteritis Current visit: Yes Status: Acute Category: Medical Code(s): K52.9 - Noninfective gastroenteritis and colitis, unspecified EPEC: usually self limiting, however, given duration of symptoms and wt loss would recommend outpt colonoscopy once pt has stabilized. Would like pt to be scheduled for out pt follow up in specialty clinic. Please advance diet as tolerate and premedicate with Bentyl 10mg. Start on FiberCon 2 tabs daily and daily probiotics with Align probiotic or Florastor. Thanks (2) T
--- NOTE | 2017-06-15 13:02 | HMH.ACPN2 ---
Internal Medicine - PN: Subj *Date: 06/15/17 *Time: 13:02 Interval history: pt with diarrhea and still dec po intake Exam Vital signs and Labs for Last 24 Hours: Temp Pulse Resp BP Pulse Ox 98.4 F 80 16 104/66 96 06/15/17 08:00 06/15/17 08:00 06/15/17 08:00 06/15/17 08:00 06/15/17 08:00 I & O for Last 24 hours: Intake & Output 06/13/17 06/14/17 06/15/17 06/16/17 10:59 11:59 11:59 11:59 Intake Total 1224 / 1224 Balance 1224 / 1224 Weight 129 lb 4.112 oz - Constitutional no acute distress, thin - *Routine HEENT Exam Head: Present: normocephalic Eye: Present: EOMI, PERRL. Absent: conjunctival icterus ENT: Present: mucous membranes dry - *Routine Neck Exam Absent: JVD - *Routine Respiratory Exam Present: CTA bilaterally - *Routine Cardiovascular Exam Present: RRR, murmur - *Routine Abdominal Exam Present: soft. Absent: tenderness, distended - *Routine Extremities Exam Present: full ROM - *Routine Skin Exam Present: intact - *Routine Neurological Exam Present: alert, oriented X3, CN II-XII intact, moving all extremities - Routine Psychiatric Exam Present: normal affect Assessment and Plan (1) Enteritis Current visit: Yes Status: Acute Category: Medical Code(s): K52.9 - Noninfective gastroenteritis and colitis, unspecified (2) Tobacco use disorder Current visit: No Status: Acute Category: Medical Code(s): F17.200 - Nicotine dependence, unspecified, uncomplicated
[2017-06-15 16:00] VITALS: BP 130/82; PULSE 79; RESP 18; TEMP 37.1; O2SAT 100
--- NOTE | 2017-06-15 16:48 | DIET.NUTRFU ---
Pt stated that he has lost about 25lbs in the last month and a half. Pt explained that for the last month he has had terrible stomach pain and diarrhea after he eats. Pt stated that he is beginning to feel a little bit better and is ready to try clear liquids. Pt diet advanced to clear liquid for lunch. Spoke to pt about supplementing diet with Ensure and other supplements. Pt stated that he likes Ensure but cannot afford it at home. Provided pt written/verbal high calorie, high protein nutrition education and spoke to pt about more affordable alternatives to Ensure. Will add Ensure TID as diet is advanced.
--- NOTE | 2017-06-15 18:11 | PC.NURSE ---
PATIENT GETTING VERY ANXIOUS WANTING TO GO OFF THE FLOOR, ADVISED HIM OF THE RISKS OF HEALTH IF HE LEAVES THE DESIGNATED AREA AND HE INSISTS ON LEAVING. HE HAS SIGNED THE INFORMED CONSENT TO LEAVE THE DESIGNATED AGAINST MEDICAL ADVICE AND THIS FORM IS PLACED ON HIS CHART.
--- NOTE | 2017-06-15 19:15 | PC.NURSE ---
DURING SHIFT CHANGE REPORT AT THIS TIME, PATIENT STATED HE WANTED TO LEAVE AMA AND REQUESTED HIS IV TO BE REMOVED AND THE FORM FOR HIM TO SIGN. PATIENT WAS EXPLAINED THE RISK OF LEAVING AMA AND VERBALIZED UNDERSTANDING. MD PAGED AT THIS TIME WITH NO RESPONSE YET.
--- NOTE | 2017-06-15 19:20 | PC.NURSE ---
PATIENT LEFT FACILITY AMA AT THIS TIME. STILL NO RESPONSE FROM MD. WILL CONTINUE TO ATTEMPT TO CONTACT.
--- NOTE | 2017-06-15 19:50 | PC.NURSE ---
SPOKE WITH DR. VIVEROS AT THIS TIME AND MADE HIM AWARE OF PATIENT SIGNING OUT/LEAVING AMA.
--- NOTE | 2017-06-19 12:44 | HMH.DCSUM ---
General - General Admission date: 06/12/17 Discharge date: 06/15/17 HPI HPI: Enteropathogenic E. coli. There is sensitivity to many antibiotics for E. coli but there is a groin amount of resistance. There is a plenty of research showing that treatment of E. coli with antibiotics may not improve the outcome of the disease. I would recommend symptomatic treatment with IV fluids as well as low residue diet, probiotics and antispasmodics. I would consider outpatient colonoscopy. Hospital Course Hospital Course: pt left ama Objective Vital signs: Temp Pulse Resp BP Pulse Ox 98.7 F 79 18 130/82 100 06/15/17 16:00 06/15/17 16:00 06/15/17 16:00 06/15/17 16:00 06/15/17 16:00 Discharge Plan - Patient Discharge Instructions ACTIVITY: Continue current activity DIET: continue same diet - Follow up Plan Disposition: Left Against Medical Advice Home Medications: Home Medications Medication Instructions Recorded Confirmed Type Phenytoin Sodium Extended 300 mg PO BID 06/12/17 06/12/17 History [Dilantin] Prescriptions/Medication Reconciliation: No Action dicyclomine 10 mg capsule 10 mg PO Q8H #21 cap ondansetron 4 mg disintegrating tablet 4 mg PO Q8H PRN #21 tab PRN Reason: nausea and vomiting Phenytoin Sodium Extended [Dilantin] 300 mg PO BID
== END 2017-06-15 19:20 | disposition left against medical advice (07) | DRG 641 ==
LOC: ER 13:05 → 2ND 14:46
PROVIDERS: Admitting Provider Emergency Medicine; Emergency Provider Emergency Medicine; Family Provider Physician Assistant; PCP Emergency Medicine; Visit Provider Emergency Medicine
DX: E86.0 Dehydration (principal); K52.9 Noninfective gastroenteritis and colitis, unspecified
CPT/HCPCS: 36415; 74177; 80048; 80053; 80076; 80185; 81001; 82150; 83690; 84436; 84443; 84479; 85007; 85025; 85651; 87086; 87507; 96365; 96374; 96375; 99284; J0595; J1956; J2270; J2405; Q9967; S0030

== ENCOUNTER 2017-06-19 20:37 | Inpatient (IN) | payer MEDICAID, SELFPAY ==
[2017-06-19 20:41] VITALS: BP 159/111; PULSE 92; RESP 22; TEMP 36.8; O2SAT 99; BMI 18.6
--- NOTE | 2017-06-19 20:51 | CT_ITS ---
CT abdomen pelvis wo con COMPARISON: [address] scans of the abdomen and pelvis 06/02/2017 06/12/2017 and 06/14/2017 HISTORY: Persistent abdominal pain with diarrhea TECHNIQUE: Multiple axial scans obtained from hemidiaphragms the pelvic floor and were performed without IV or oral contrast. Sagittal and coronal reformats were evaluated as well. FINDINGS: The lower lung hernandes are clear, again is a calcified granuloma left lower lobe. Stomach is distended with ingested food particles and fluid. The gallbladder is contracted but shows no obvious stones. The liver and spleen and pancreas appear grossly normal. Abdominal detail is somewhat difficult to evaluate due to the fact that there is little or no body fat and there is no IV or oral contrast utilized. The adrenal glands and kidneys both appear normal. Again noted are mildly dilated loops of mid and distal small bowel. The fluid seen in inferior portions pouch on the most recent study is not seen but there is free fluid in the pelvis which is more prominent than on the most recent study. There is been previous appendectomy. There is very little formed stool throughout the colon though there is moderate gaseous dilatation of the cecum and ascending colon and splenic flexure. This would be consistent with a history of diarrhea. The urinary bladder is partially decompressed, the prostate is normal. IMPRESSION: Findings again consistent with ileitis and certainly Crohn's disease is a consideration, the early nonstenotic phase. I basically agree with the [facility] report.
[2017-06-19 21:09] LABS: Basophils % 0.1 % (0.1-2.0); Eosinophils # 0.2 K/mm3 (0.0-0.4); Eosinophils % 0.6 % (0.1-12.0); Hematocrit 44.7 % (42.0-52.0); Hemoglobin 14.5 g/dL (14.1-18.0); Lymphocytes # 1.9 K/mm3 (0.7-4.5); Lymphocytes % 7.4 K/mm3 (10-50); Mean Corpuscular HGB Conc 32.3 g/dL (31.8-35.4); Mean Corpuscular Hemoglobin 30.2 pg (27.0-31.2); Mean Corpuscular Volume 93.3 fl (80-94); Mean Platelet Volume 7.2 fl (7.4-10.4); Monocytes % 3.7 % (1.7-9.3); Neutrophils # 22.7 K/mm3 (1.8-7.8); Neutrophils % 88.2 % (37.0-80.0); Red Blood Count 4.79 M/mm3 (4.60-6.20); Red Cell Distribution Width 14.4 % (11.5-17.5)
[2017-06-19 21:10] LABS: White Blood Count 25.7 K/mm3 (4.8-10.8)
[2017-06-19 21:11] LABS: Platelet Count 718 K/mm3 (142-424)
[2017-06-19 21:12] LABS: MANUAL DIFFERENTIAL MANUAL DIFFERENTIAL (MANUAL DIFF)
[2017-06-19 21:23] LABS: Alanine Aminotransferase 86 U/L (12-78); Albumin Level 2.7 gm/dL (3.4-5.0); Albumin/Globulin Ratio 0.6 (1.1-1.8); Alkaline Phosphatase 157 U/L (46-116); Amylase 26 U/L (25-125); Anion Gap 13.7 mEq/L (5-15); Aspartate Amino Transferase 29 U/L (15-37); Bilirubin,Total 0.2 mg/dL (0.2-1.0); Blood Urea Nitrogen 13 mg/dL (7-18); Calcium 8.9 mg/dL (8.5-10.1); Carbon Dioxide 28 mmol/L (21.0-32.0); Chloride 99 mmol/L (98-107); Creatinine Clearance Estimated 99 mL/min (0-300); Creatinine,Serum 0.81 mg/dL (0.70-1.30); Estimated Glomerular Filt Rate 105 ml/min (>60); GFR (African American) 126 ML/MIN (>60); Globulin 4.6 gm/dl (1.3-3.2); Glucose 139 mg/dL (74-106); Lipase 61 u/L (73-393); Potassium 3.7 mmoL/L (3.5-5.1); Sodium 137 mmol/L (136-145); Total Protein,Serum 7.3 gm/dL (6.4-8.2)
[2017-06-19 21:28] LABS: Lymphocytes % 10 % (10-50); Monocytes % 2 % (2-9); Neutrophils % 81 % (42-76); Platelet Estimate Moderate Increase; RBC Morphology Normal; Total Cells Counted 100
[2017-06-19 21:55] LABS: Adenovirus F 40/41, stool Not Detected (NotDetected); Astrovirus Not Detected (NotDetected); Campylobacter Not Detected (NotDetected); Clostridium Difficile A/B, PCR Not Detected (NotDetected); Cryptosporidium Not Detected (NotDetected); Cyclospora Cayetanesis Not Detected (NotDetected); Entamoeba histolytica Not Detected (NotDetected); Enteroaggregative E coli Not Detected (NotDetected); Enteropathogenic E coli Not Detected (NotDetected); Enterotoxigenic E coli Not Detected (NotDetected); Giardia lamblia Not Detected (NotDetected); Norovirus Not Detected (NotDetected); Plesimonas Shigalloides, PCR Not Detected (NotDetected); Rotavirus A Not Detected (NotDetected); Salmonella, PCR Not Detected (NotDetected); Sapovirus Not Detected (NotDetected); Shiga-like toxin E coli Not Detected (NotDetected); Shigella Enterovasive E coli Not Detected (NotDetected); Vibrio Cholerae Not Detected (NotDetected); Vibrio, PCR Not Detected (NotDetected); Yersinia Entercolitica, PCR Not Detected (NotDetected)
--- NOTE | 2017-06-19 21:59 | HMH.EDGENADL ---
ED Disposition Clinical Impression: E coli enteritis Disposition: Still a Patient Condition on Discharge: Fair Instructions: DI for Acute Abdomen Referrals: Jhony Roberson MD [Primary Care Provider] - - Critical Care Critical Care Time: No Attestation: On 06/19/17, the high probability of a clinically significant, sudden or life threatening deterioration of the following system(s) required my full and direct attention, intervention and personal management. The time I documented below is in addition to time spent performing reported procedures but includes the following listed in this critical care notation. Medical Decision Making - Zane Inquiry Pt receiving controlled substance: Yes Zane was queried for this patient: No Reason not queried -: Emergent pt cond-no time Risks and benefits of using a controlled substance: were not discussed with pt by me Vital Signs: 06/19/17 20:41 06/19/17 22:09 Temperature 98.3 F Temperature Source Oral Pulse Rate [Right Radial] 92 H 100 H Respiratory Rate 22 Blood Pressure [Right Arm] 159/111 151/97 Blood Pressure Mean [Right Arm] 127 115 Blood Pressure Source [Right Arm] Automatic Cuff Automatic Cuff Blood Pressure Position [Right Arm] Supine Supine 02 Sat by Pulse Oximetry 99 97 Oxygen Delivery Method Room Air - Lab Data Lab Results 06/19/17 20:55: WBC 25.7 H*, RBC 4.79, Hgb 14.5, Hct 44.7, MCV 93.3, MCH 30.2, MCHC 32.3, RDW 14.4, Plt Count 718 H, MPV 7.2 L, Neut % (Auto) 88.2 H, Lymph % (Auto) 7.4 L, [place] % (Auto) 3.7, Eos % (Auto) 0.6, Baso % (Auto) 0.1, Neut # (Auto) 22.7 H, Lymph # (Auto) 1.9, [place] # (Auto) 1.0, Eos # (Auto) 0.2, Baso # (Auto) 0.0, Total Counted 100, Neutrophils % (Manual) 81 H, Band Neutrophils % 7.0, Lymphocytes % (Manual) 10, Monocytes % (Manual) 2, Platelet Estimate Moderate increase, RBC Morphology Normal 06/19/17 20:55: Sodium 137, Potassium 3.7, Chloride 99, Carbon Dioxide 28, Anion Gap 13.7, BUN 13, Creatinine 0.81, Estimated Creat Clear 99, Estimated GFR 105, Est GFR ( Amer) 126, Glucose 139 H, Calcium 8.9, Total Bilirubin 0.2, AST 29, ALT 86 H, Alkaline Phosphatase 157 H, Total Protein 7.3 D, Albumin 2.7 L, Globulin 4.6 H, Albumin/Globulin Ratio 0.6 L, Amylase 26, Lipase 61 L Result diagrams: 06/19/17 20:55 06/19/17 20:55 Orders (Tests/Meds): ED MEDICATIONS Discontinued Medications Generic Name Dose Route Start Last Admin Trade Name Freq PRN Reason Stop Dose Admin Sodium Chloride 500 mls @ 999 mls/hr 06/19/17 21:00 06/19/17 21:00 Sod Chlor 0.9% 1000ml Bag IV 06/19/17 21:30 999 mls/hr .Q31M NATASHA Administration ORDERS Category Date Time Status CT abdomen pelvis wo con Stat Cat Scan 06/19/17 20:51 Taken Diarrhea Panel, PCR Stat Lab 06/19/17 21:25 Received - CT Data CT Scan: Abdomen, Pelvis Time Received: 21:[address] Reviewed: Yes: I have viewed the radiologist's interpretation Findings Narrative: CT scan interpreted by ad radiologist. Faxed report received and reviewed: Worsening infectious/inflammatory enteritis, including involvement of the terminal ileum. Small volume reactive free fluid. No perforation. Medical Decision Narrative: 11:25 PM: I have discussed the case with Dr. Hart for Dr. Roberson who agrees to admit the patient to the hospital. We discussed the patient's clinical information, including history, exam, laboratory and radiology results and ED course. Per hospital procedure, I will write temporary bridge inpatient orders on the patient. Specific orders requested by the admitting physician: IV fluids, pain medication General Adult HPI - General Chief complaint: Abdominal Pain Stated complaint: stomach pain Time Seen by Provider: 06/19/17 23:08 Mode of Arrival: Wheelchair Limitations: No Limitations Description of Symptoms (Recalled from ER Triage Doc. by RN): Pt. reports abdominal pain for 1 month with diarrhea. - History of Present Illness HPI n
[2017-06-19 22:09] VITALS: BP 151/97; PULSE 100; O2SAT 97
[2017-06-19 23:30] VITALS: BP 135/98; PULSE 94; RESP 16; O2SAT 99
[2017-06-20] VITALS (9 sets, daily range): BP systolic 111–142; BP diastolic 74–92; PULSE 67–90; RESP 16–20; TEMP 36.8–37.3; O2SAT 92–99; BMI 18.1
--- NOTE | 2017-06-20 00:05 | PC.NURSE ---
Report called to Allison
--- NOTE | 2017-06-20 07:34 | PC.NURSE ---
REPORT GIVEN TO Pardeep UMANA W/C
[2017-06-20 08:07] LABS: Basophils # 0.1 K/mm3 (0-0.2); Eosinophils # 0.1 K/mm3 (0.0-0.4); Lymphocytes # 2.3 K/mm3 (0.7-4.5); Mean Corpuscular HGB Conc 31.8 g/dL (31.8-35.4); Red Cell Distribution Width 14.3 % (11.5-17.5)
[2017-06-20 08:38] LABS: Basophils % 0.2 % (0.1-2.0); Eosinophils % 0.4 % (0.1-12.0); Hematocrit 38.9 % (42.0-52.0); Mean Corpuscular Hemoglobin 29.9 pg (27.0-31.2); Mean Platelet Volume 7.6 fl (7.4-10.4); Monocytes # 1.2 K/mm3 (0.1-1.0); Neutrophils # 19.4 K/mm3 (1.8-7.8); Neutrophils % 84.4 % (37.0-80.0); Platelet Count 569 K/mm3 (142-424); Red Blood Count 4.14 M/mm3 (4.60-6.20); White Blood Count 22.9 K/mm3 (4.8-10.8)
[2017-06-20 08:39] LABS: Hemoglobin 12.4 g/dL (14.1-18.0)
[2017-06-20 08:41] LABS: MANUAL DIFFERENTIAL MANUAL DIFFERENTIAL (MANUAL DIFF)
[2017-06-20 09:40] LABS: Lymphocytes % 4 % (10-50); Monocytes % 5 % (2-9); Neutrophils % 91 % (42-76); Platelet Estimate Slight Increase; Target Cells 1+; Total Cells Counted 100
[2017-06-20 09:41] LABS: Anisocytosis 1+
--- NOTE | 2017-06-20 13:39 | P.CONPHA_ITS ---
[facility] VTE Monitoring - Patient Demographics Admission date: 06/20/17 Report Date: 06/20/17 Time: 13:39 Allergies/Adverse Reactions: Patient Allergies No Known Allergies Allergy (Verified 06/19/17 20:48) Height: 1.78 m Weight: 57.209 kg Patient Problems: Current Active Problems E coli enteritis (Acute) - VTE Risk Labs: VTE Related Lab Results Hgb 12.4 g/dL (14.1-18.0) L D 06/20/17 07:01 Hct 38.9 % (42.0-52.0) L 06/20/17 07:01 Plt Count 569 K/mm3 (142-424) H 06/20/17 07:01 BUN 13 mg/dL (7-18) 06/19/17 20:55 Creatinine 0.81 mg/dL (0.70-1.30) 06/19/17 20:55 Estimated Creat Clear 99 mL/min (0-300) 06/19/17 20:55 VTE Score: 3 VTE Risk Level: Low Risk - Prophylaxis Types of VTE Prophylaxis: TEDS Knee High - VTE Diagnosis Confirmed Comment: ZAKIA SAENZ
--- NOTE | 2017-06-20 14:38 | HMH.HP ---
*Admission Date: 06/20/17 *Chief complaint: abd pain *History of present illness: 41-year-old male presented to the ER with complaints of abdominal pain, not eating or drinking, diarrhea. Patient states he has been sick for over a month with the symptoms and has been losing weight. Patient was seen in the ER on June 12 for the same complaints and was admitted. Patient was seen by Dr. Titus, patient was positive for enteropathogenic E. coli. At that time Dr. Titus did not feel he needed antibiotics for that. The patient signed out AMA on Thursday after 3 days in the hospital because he had electrical problems at home had a bird that needed warm. Patient states he had an appointment with Dr. Titus yesterday but the appointment was canceled due to an emergency. Patient states he still having the same problems, not eating or drinking well, urine is dark. Patient denies fever vomiting or blood in stool. Patient admitted for IV fluids and consult with Tacho. [facility] History I have reviewed the patient's past medical history: Yes Medical History: Reports:: Seizures Denies:: Cancer, Diabetes Mellitus Type 1, Diabetes Mellitus Type 2, MRSA Other Surgeries: Yes: Appendectomy Amputation: No Fractures: Yes - *Social History Smoking Status: Current every day smoker Tobacco Type: cigarettes # Packs/Day (cigarettes): 1 #Yrs smoked (if former smoker): 2 Alcohol Intake: never Alcohol Intake Frequency:: holidays/special occasions only Substance Use Type: marijuana Last Used Substance: hours (ago) Occupational Status: unemployed Housing: house Household Members: spouse - Psychiatric History Expresses thoughts of harming self/others: None Suicide Plan Description: No Plan *Family Hx:: No significant family history Review of Systems - Review of Systems Review of systems:: pertinent systems reviewed and negative unless documented below - Constitutional Reports weight loss, Denies chills, Denies fever(s) - Eyes Denies change in vision - ENT Denies bleeding gums - *Cardiovascular Denies generalized swelling, Denies leg sores - *Respiratory Denies pain with cough - *Gastrointestinal Reports abdominal pain, Reports change in bowel habits, Reports cramping, Reports loose stools, Reports loose stools, Denies black, tarry stools - *Genitourinary Denies genital lesions - *Musculoskeletal Denies decreased muscle mass - Integumentary/Breasts Denies change in hair, Denies rash - *Neurologic Reports weakness, Denies abnormal movements - Psychiatric Denies anxiety - Endocrine Denies flushing - Hematologic/Lymphatic Denies enlarged lymph nodes - Allergic/Immunologic Denies lip swelling Meds Home Medications Medication Instructions Recorded Confirmed Type Phenytoin Sodium Extended 300 mg PO BID 06/12/17 06/19/17 History [Dilantin] Dicyclomine HCl [Bentyl 10mg 10 mg PO Q8H 06/19/17 06/19/17 History capsule] Allergies Allergy/AdvReac Type Severity Reaction Status Date / Time No Known Allergies Allergy Verified 06/19/17 20:48 Exam Vital signs and Labs for Last 24 Hours: Temp Pulse Resp BP Pulse Ox 98.7 F 67 16 137/85 99 06/20/17 07:58 06/20/17 07:58 06/20/17 07:58 06/20/17 07:58 06/20/17 09:20 Laboratory Results - last 24 hr 06/20/17 07:01: WBC 22.9 H*, RBC 4.14 L, Hgb 12.4 L D, Hct 38.9 L, MCV 94.0, MCH 29.9, MCHC 31.8, RDW 14.3, Plt Count 569 H, MPV 7.6, Neut % (Auto) 84.4 H, Lymph % (Auto) 10.0, [place] % (Auto) 5.0, Eos % (Auto) 0.4, Baso % (Auto) 0.2, Neut # (Auto) 19.4 H, Lymph # (Auto) 2.3, [place] # (Auto) 1.2 H, Eos # (Auto) 0.1, Baso # (Auto) 0.1, Total Counted 100, Neutrophils % (Manual) 91 H, Lymphocytes % (Manual) 4 L, Monocytes % (Manual) 5, Platelet Estimate Slight increase, Anisocytosis 1+, Target Cells 1+ I & O for Last 24 hours: Intake & Output 06/18/17 06/19/17 06/20/17 06/21/17 11:59 11:59 11:59 11:59 Intake Total 687 / 687 Balance 687 /
--- NOTE | 2017-06-20 14:42 | P.HP_ITS ---
*Admission Date: 06/20/17 *Chief complaint: abd pain *History of present illness: 41-year-old male presented to the ER with complaints of abdominal pain, not eating or drinking, diarrhea. Patient states he has been sick for over a month with the symptoms and has been losing weight. Patient was seen in the ER on June 12 for the same complaints and was admitted. Patient was seen by Dr. Titus, patient was positive for enteropathogenic E. coli. At that time Dr. Titus did not feel he needed antibiotics for that. The patient signed out AMA on Thursday after 3 days in the hospital because he had electrical problems at home had a bird that needed warm. Patient states he had an appointment with Dr. Titus yesterday but the appointment was canceled due to an emergency. Patient states he still having the same problems, not eating or drinking well, urine is dark. Patient denies fever vomiting or blood in stool. Patient admitted for IV fluids and consult with Tacho. [facility] History I have reviewed the patient's past medical history: Yes Medical History: Reports:: Seizures Denies:: Cancer, Diabetes Mellitus Type 1, Diabetes Mellitus Type 2, MRSA Other Surgeries: Yes: Appendectomy Amputation: No Fractures: Yes - *Social History Smoking Status: Current every day smoker Tobacco Type: cigarettes # Packs/Day (cigarettes): 1 #Yrs smoked (if former smoker): 2 Alcohol Intake: never Alcohol Intake Frequency:: holidays/special occasions only Substance Use Type: marijuana Last Used Substance: hours (ago) Occupational Status: unemployed Housing: house Household Members: spouse - Psychiatric History Expresses thoughts of harming self/others: None Suicide Plan Description: No Plan *Family Hx:: No significant family history Review of Systems - Review of Systems Review of systems:: pertinent systems reviewed and negative unless documented below - Constitutional Reports weight loss, Denies chills, Denies fever(s) - Eyes Denies change in vision - ENT Denies bleeding gums - *Cardiovascular Denies generalized swelling, Denies leg sores - *Respiratory Denies pain with cough - *Gastrointestinal Reports abdominal pain, Reports change in bowel habits, Reports cramping, Reports loose stools, Reports loose stools, Denies black, tarry stools - *Genitourinary Denies genital lesions - *Musculoskeletal Denies decreased muscle mass - Integumentary/Breasts Denies change in hair, Denies rash - *Neurologic Reports weakness, Denies abnormal movements - Psychiatric Denies anxiety - Endocrine Denies flushing - Hematologic/Lymphatic Denies enlarged lymph nodes - Allergic/Immunologic Denies lip swelling Meds Home Medications Medication Instructions Recorded Confirmed Type Phenytoin Sodium Extended 300 mg PO BID 06/12/17 06/19/17 History [Dilantin] Dicyclomine HCl [Bentyl 10mg 10 mg PO Q8H 06/19/17 06/19/17 History capsule] Allergies Allergy/AdvReac Type Severity Reaction Status Date / Time No Known Allergies Allergy Verified 06/19/17 20:48 Exam Vital signs and Labs for Last 24 Hours: Temp Pulse Resp BP Pulse Ox 98.7 F 67 16 137/85 99 06/20/17 07:58 06/20/17 07:58 06/20/17 07:58 06/20/17 07:58 06/20/17 09:20 Laboratory Results - last 24 hr 06/20/17 07:01: WBC 22.9 H*, RBC 4.14 L, Hgb 12.4 L D, Hct 38.9 L, MCV 94.0, MCH 2
--- NOTE | 2017-06-21 03:44 | PC.NURSE ---
Pt has complained of pain in abdomen multiple times shift, medicated per JUN. Wheezing noted during lung auscultation. BS active in all 4 qauds. VSS. No acute distress noted, will continue to monitor.
[2017-06-21 04:00] VITALS: BP 148/84; PULSE 85; RESP 16; TEMP 37.3; O2SAT 98
--- NOTE | 2017-06-21 05:57 | PC.NURSE ---
LATE ENTRY- PT DOES NOT WANT SEZUIRE PADS PLACED ON HIS BED.PT STATED HE DOES NOT NEED THEM. NURSE NOTIFIED
[2017-06-21 07:18] LABS: Basophils # 0.1 K/mm3 (0-0.2); Basophils % 0.2 % (0.1-2.0); Eosinophils # 0.1 K/mm3 (0.0-0.4); Eosinophils % 0.3 % (0.1-12.0); Hematocrit 38.5 % (42.0-52.0); Hemoglobin 12.5 g/dL (14.1-18.0); Lymphocytes # 1.6 K/mm3 (0.7-4.5); Mean Corpuscular HGB Conc 32.4 g/dL (31.8-35.4); Mean Corpuscular Hemoglobin 30.1 pg (27.0-31.2); Mean Corpuscular Volume 92.9 fl (80-94); Mean Platelet Volume 7.1 fl (7.4-10.4); Monocytes # 1.1 K/mm3 (0.1-1.0); Monocytes % 5.5 % (1.7-9.3); Neutrophils # 17.3 K/mm3 (1.8-7.8); Neutrophils % 85.9 % (37.0-80.0); Platelet Count 574 K/mm3 (142-424); Red Blood Count 4.15 M/mm3 (4.60-6.20); Red Cell Distribution Width 14.2 % (11.5-17.5)
--- NOTE | 2017-06-21 07:19 | PC.NURSE ---
REPORT GIVEN TO Pardeep UMANA W/C
[2017-06-21 07:22] LABS: MANUAL DIFFERENTIAL MANUAL DIFFERENTIAL (MANUAL DIFF); White Blood Count 20.1 K/mm3 (4.8-10.8)
[2017-06-21 07:29] LABS: Albumin Level 2.1 gm/dL (3.4-5.0); Anion Gap 14.6 mEq/L (5-15); Calcium 8.1 mg/dL (8.5-10.1); Carbon Dioxide 25 mmol/L (21.0-32.0); Chloride 98 mmol/L (98-107); Creatinine Clearance Estimated 150 mL/min (0-300); Creatinine,Serum 0.52 mg/dL (0.70-1.30); Estimated Glomerular Filt Rate 174 ml/min (>60); GFR (African American) 211 ML/MIN (>60); Potassium 3.6 mmoL/L (3.5-5.1); Sodium 134 mmol/L (136-145)
[2017-06-21 07:44] LABS: Alanine Aminotransferase 58 U/L (12-78); Albumin/Globulin Ratio 0.5 (1.1-1.8); Alkaline Phosphatase 130 U/L (46-116); Aspartate Amino Transferase 19 U/L (15-37); Bilirubin,Total 0.4 mg/dL (0.2-1.0); Blood Urea Nitrogen 6 mg/dL (7-18); Globulin 3.9 gm/dl (1.3-3.2); Glucose 92 mg/dL (74-106)
--- NOTE | 2017-06-21 07:53 | PC.NURSE ---
report given a bout rn
[2017-06-21 07:55] VITALS: BP 152/77; PULSE 93; RESP 16; TEMP 36.9; O2SAT 98
[2017-06-21 08:03] VITALS: O2SAT 93
[2017-06-21 08:52] LABS: Lymphocytes % 8 % (10-50); Monocytes % 2 % (2-9); Neutrophils % 89 % (42-76); Platelet Estimate Slight Increase; RBC Morphology Normal; Total Cells Counted 100
--- NOTE | 2017-06-21 09:45 | P.PN_ITS ---
Internal Medicine - PN: Subj *Date: 06/21/17 *Time: 09:44 Exam Vital signs and Labs for Last 24 Hours: Temp Pulse Resp BP Pulse Ox 98.4 F 93 H 16 152/77 93 L 06/21/17 07:55 06/21/17 07:55 06/21/17 07:55 06/21/17 07:55 06/21/17 08:03 Laboratory Results - last 24 hr 06/21/17 06:30: WBC 20.1 H*, RBC 4.15 L, Hgb 12.5 L, Hct 38.5 L, MCV 92.9, MCH 30.1, MCHC 32.4, RDW 14.2, Plt Count 574 H, MPV 7.1 L, Neut % (Auto) 85.9 H, Lymph % (Auto) 8.0 L, [place] % (Auto) 5.5, Eos % (Auto) 0.3, Baso % (Auto) 0.2, Neut # (Auto) 17.3 H, Lymph # (Auto) 1.6, [place] # (Auto) 1.1 H, Eos # (Auto) 0.1 , Baso # (Auto) 0.1, Total Counted 100, Neutrophils % (Manual) 89 H, Band Neutrophils % 1.0, Lymphocytes % (Manual) 8 L, Monocytes % (Manual) 2, Platelet Estimate Slight increase, RBC Morphology Normal 06/21/17 06:30: Sodium 134 L, Potassium 3.6, Chloride 98, Carbon Dioxide 25, Anion Gap 14.6, BUN 6 L D, Creatinine 0.52 L D, Estimated Creat Clear 150, Estimated GFR 174, Est GFR ( Amer) 211 D, Glucose 92, Calcium 8.1 L, Total Bilirubin 0.4, AST 19 D, ALT 58 D, Alkaline Phosphatase 130 H, Total Protein 6.0 L, Albumin 2.1 L D, Globulin 3.9 H, Albumin/Globulin Ratio 0.5 L I & O for Last 24 hours: Intake & Output 06/18/17 06/19/17 06/20/17 06/21/17 11:59 11:59 11:59 11:59 Intake Total 687 / 687 720 / 720 Output Total 1100 / 1100 Balance 687 / 687 -380 / -380 Weight 126 lb 2 oz 126 lb 2 oz - Constitutional no acute distress - *Routine HEENT Exam Head: Present: normocephalic Eye: Present: PERRL ENT: Present: mucous membranes moist - *Routine Neck Exam Present: supple, full ROM - Routine Chest/Breast/Axilla Exam Chest wall: Absent: tenderness - *Routine Respiratory Exam Present: CTA bilaterally - *Routine Cardiovascular Exam Present: RRR - *Routine Abdominal Exam Present: soft, normoactive bowel sounds, tenderness - *Routine Skin Exam Present: intact - *Routine Neurological Exam Present: alert, oriented X3, CN II-XII intact - Routine Psychiatric Exam Present: normal affect, normal thought process Assessment and Plan - Assessment and plan all Dx Assessment and Plan for all problems:: waiting for consult for Tacho in the a.m.
[2017-06-21 16:00] VITALS: BP 120/89; PULSE 105; RESP 16; TEMP 37.2; O2SAT 93
[2017-06-21 19:29] VITALS: BP 130/84; PULSE 96; RESP 18; TEMP 37.4; O2SAT 96
[2017-06-21 20:00] VITALS: O2SAT 96
[2017-06-22 03:45] VITALS: BP 137/82; PULSE 98; RESP 20; TEMP 37.3; O2SAT 97
--- NOTE | 2017-06-22 04:11 | PC.NURSE ---
Pt continues to c/o pain in abdomen, medicated per mar. Rhonchi noted during lung auscultation. BS active in all 4 qauds. VSS. No acute distress noted. Will continue to monitor.
[2017-06-22 06:24] LABS: Basophils % 0.2 % (0.1-2.0); Eosinophils # 0.1 K/mm3 (0.0-0.4); Eosinophils % 0.2 % (0.1-12.0); Hematocrit 36.7 % (42.0-52.0); Hemoglobin 12.2 g/dL (14.1-18.0); Lymphocytes # 1.5 K/mm3 (0.7-4.5); Lymphocytes % 7.3 K/mm3 (10-50); Mean Corpuscular HGB Conc 33.3 g/dL (31.8-35.4); Mean Corpuscular Hemoglobin 30.4 pg (27.0-31.2); Mean Corpuscular Volume 91.4 fl (80-94); Mean Platelet Volume 6.8 fl (7.4-10.4); Monocytes # 1.3 K/mm3 (0.1-1.0); Monocytes % 6.2 % (1.7-9.3); Neutrophils # 17.4 K/mm3 (1.8-7.8); Neutrophils % 86.1 % (37.0-80.0); Platelet Count 538 K/mm3 (142-424); Red Blood Count 4.01 M/mm3 (4.60-6.20); Red Cell Distribution Width 14.3 % (11.5-17.5); White Blood Count 20.2 K/mm3 (4.8-10.8)
[2017-06-22 06:41] LABS: Alanine Aminotransferase 59 U/L (12-78); Albumin Level 1.9 gm/dL (3.4-5.0); Albumin/Globulin Ratio 0.5 (1.1-1.8); Alkaline Phosphatase 153 U/L (46-116); Anion Gap 12.5 mEq/L (5-15); Aspartate Amino Transferase 23 U/L (15-37); Bilirubin,Total 0.3 mg/dL (0.2-1.0); Blood Urea Nitrogen 5 mg/dL (7-18); Calcium 8.3 mg/dL (8.5-10.1); Carbon Dioxide 26 mmol/L (21.0-32.0); Chloride 98 mmol/L (98-107); Creatinine Clearance Estimated 160 mL/min (0-300); Creatinine,Serum 0.49 mg/dL (0.70-1.30); Estimated Glomerular Filt Rate 187 ml/min (>60); GFR (African American) 226 ML/MIN (>60); Globulin 3.9 gm/dl (1.3-3.2); Glucose 107 mg/dL (74-106); Potassium 3.5 mmoL/L (3.5-5.1); Sodium 133 mmol/L (136-145); Total Protein,Serum 5.8 gm/dL (6.4-8.2)
[2017-06-22 06:48] LABS: MANUAL DIFFERENTIAL MANUAL DIFFERENTIAL (MANUAL DIFF)
--- NOTE | 2017-06-22 07:20 | PC.NURSE ---
REPORT GIVEN TO Lexi CRUZ W/C
--- NOTE | 2017-06-22 07:28 | PC.NURSE ---
report given to [facility] rn
[2017-06-22 07:34] VITALS: BP 117/68; PULSE 91; RESP 20; TEMP 36.9; O2SAT 99
[2017-06-22 08:51] LABS: Lymphocytes % 4 % (10-50); Monocytes % 5 % (2-9); Neutrophils % 91 % (42-76); Platelet Estimate Slight Increase; RBC Morphology Normal; Total Cells Counted 100
--- NOTE | 2017-06-22 10:12 | HMH.CONS ---
<Janeth Witt - Last Filed: 06/22/17 10:12> *Admission Date: 06/20/17 *Chief complaint: ABD pain/Diarrhea *History of present illness: 41-year-old male presented to the ER with complaints of abdominal pain, not eating or drinking, diarrhea. Patient states he has been sick for over a month with the symptoms and has been losing weight. Patient was seen in the ER on June 12 for the same complaints and was admitted. Patient was seen by Dr. Titus, patient was positive for enteropathogenic E. coli. At that time Dr. Titus did not feel he needed antibiotics for that. The patient signed out AMA on Thursday after 3 days in the hospital because he had electrical problems at home. Patient states he is still having the same problems, not eating or drinking well, urine is dark. Patient denies fever vomiting or blood in stool. Patient admitted for IV fluids and consult with Tacho. WBC is approx 20. The pt is having 3-4 loose BM daily with severe cramping. PCR panel neg. The pt denies hematochezia, melena, or mucus in stool. He is having ABD pain. CT imaging with contrast showed ileitis. [facility] History Medical History: Reports:: Seizures Denies:: Cancer, Diabetes Mellitus Type 1, Diabetes Mellitus Type 2, MRSA Other Surgeries: Yes: Appendectomy Amputation: No Fractures: Yes - *Social History Smoking Status: Current every day smoker Tobacco Type: cigarettes # Packs/Day (cigarettes): 1 #Yrs smoked (if former smoker): 2 Alcohol Intake: never Alcohol Intake Frequency:: holidays/special occasions only Substance Use Type: marijuana Last Used Substance: hours (ago) Occupational Status: unemployed Housing: house Household Members: spouse - Psychiatric History Expresses thoughts of harming self/others: None Suicide Plan Description: No Plan *Family Hx:: No significant family history Review of Systems - Review of Systems Review of systems:: pertinent systems reviewed and negative unless documented below - *Gastrointestinal Reports abdominal pain, Reports change in bowel habits, Reports change in stools, Reports cramping, Reports loose stools, Reports constant urge to pass stool - *Neurologic Reports weakness, Denies abnormal movements Meds Home Medications Medication Instructions Recorded Confirmed Type Phenytoin Sodium Extended 300 mg PO BID 06/12/17 06/19/17 History [Dilantin] Dicyclomine HCl [Bentyl 10mg 10 mg PO Q8H 06/19/17 06/19/17 History capsule] Allergies Allergy/AdvReac Type Severity Reaction Status Date / Time No Known Allergies Allergy Verified 06/19/17 20:48 Exam Vital signs and Labs for Last 24 Hours: Temp Pulse Resp BP Pulse Ox 98.5 F 91 H 20 117/68 99 06/22/17 07:34 06/22/17 07:34 06/22/17 07:34 06/22/17 07:34 06/22/17 07:34 Laboratory Results - last 24 hr 06/22/17 06:00: WBC 20.2 H*, RBC 4.01 L, Hgb 12.2 L, Hct 36.7 L, MCV 91.4, MCH 30.4, MCHC 33.3, RDW 14.3, Plt Count 538 H, MPV 6.8 L, Neut % (Auto) 86.1 H, Lymph % (Auto) 7.3 L, [place] % (Auto) 6.2, Eos % (Auto) 0.2, Baso % (Auto) 0.2, Neut # (Auto) 17.4 H, Lymph # (Auto) 1.5, [place] # (Auto) 1.3 H, Eos # (Auto) 0.1, Baso # (Auto) 0.0, Total Counted 100, Neutrophils % (Manual) 91 H, Lymphocytes % (Manual) 4 L, Monocytes % (Manual) 5, Platelet Estimate Slight increase, RBC Morphology Normal 06/22/17 06:00: Sodium 133 L, Potassium 3.5, Chloride 98, Carbon Dioxide 26, Anion Gap 12.5, BUN 5 L, Creatinine 0.49 L, Estimated Creat Clear 160, Estimated GFR 187, Est GFR ( Amer) 226, Glucose 107 H, Calcium 8.3 L, Total Bilirubin 0.3, AST 23, ALT 59, Alkaline Phosphatase 153 H, Total Protein 5.8 L, Albumin 1.9 L, Globulin 3.9 H, Albumin/Globulin Ratio 0.5 L I & O for Last 24 hours: Intake & Output 06/19/17 06/20/17 06/21/17 06/22/17 23:59 23:59 23:59 23:59 Intake Total 1407 / 1407 720 / 720 1500 / 1500 Output Total 250 / 250 2200 / 2200 700 / 700 Balance 1157 / 1157 -1480 / -1480 800 / 800 Weight 126 lb 2 oz 127 lb
--- NOTE | 2017-06-22 10:23 | P.CONS_ITS ---
<Janeth Witt - Last Filed: 06/22/17 10:12> *Admission Date: 06/20/17 *Chief complaint: ABD pain/Diarrhea *History of present illness: 41-year-old male presented to the ER with complaints of abdominal pain, not eating or drinking, diarrhea. Patient states he has been sick for over a month with the symptoms and has been losing weight. Patient was seen in the ER on June 12 for the same complaints and was admitted. Patient was seen by Dr. Titus, patient was positive for enteropathogenic E. coli. At that time Dr. Titus did not feel he needed antibiotics for that. The patient signed out AMA on Thursday after 3 days in the hospital because he had electrical problems at home. Patient states he is still having the same problems, not eating or drinking well, urine is dark. Patient denies fever vomiting or blood in stool. Patient admitted for IV fluids and consult with Tacho. WBC is approx 20. The pt is having 3-4 loose BM daily with severe cramping. PCR panel neg. The pt denies hematochezia, melena, or mucus in stool. He is having ABD pain. CT imaging with contrast showed ileitis. [facility] History Medical History: Reports:: Seizures Denies:: Cancer, Diabetes Mellitus Type 1, Diabetes Mellitus Type 2, MRSA Other Surgeries: Yes: Appendectomy Amputation: No Fractures: Yes - *Social History Smoking Status: Current every day smoker Tobacco Type: cigarettes # Packs/Day (cigarettes): 1 #Yrs smoked (if former smoker): 2 Alcohol Intake: never Alcohol Intake Frequency:: holidays/special occasions only Substance Use Type: marijuana Last Used Substance: hours (ago) Occupational Status: unemployed Housing: house Household Members: spouse - Psychiatric History Expresses thoughts of harming self/others: None Suicide Plan Description: No Plan *Family Hx:: No significant family history Review of Systems - Review of Systems Review of systems:: pertinent systems reviewed and negative unless documented below - *Gastrointestinal Reports abdominal pain, Reports change in bowel habits, Reports change in stools , Reports cramping, Reports loose stools, Reports constant urge to pass stool - *Neurologic Reports weakness, Denies abnormal movements Meds Home Medications Medication Instructions Recorded Confirmed Type Phenytoin Sodium Extended 300 mg PO BID 06/12/17 06/19/17 History [Dilantin] Dicyclomine HCl [Bentyl 10mg 10 mg PO Q8H 06/19/17 06/19/17 History capsule] Allergies Allergy/AdvReac Type Severity Reaction Status Date / Time No Known Allergies Allergy Verified 06/19/17 20:48 Exam Vital signs and Labs for Last 24 Hours: Temp Pulse Resp BP Pulse Ox 98.5 F 91 H 20 117/68 99 06/22/17 07:34 06/22/17 07:34 06/22/17 07:34 06/22/17 07:34 06/22/17 07:34 Laboratory Results - last 24 hr 06/22/17 06:00: WBC 20.2 H*, RBC 4.01 L, Hgb 12.2 L, Hct 36.7 L, MCV 91.4, MCH 30.4, MCHC 33.3, RDW 14.3, Plt Count 538 H, MPV 6.8 L, Neut % (Auto) 86.1 H, Lymph % (Auto) 7.3 L, [place] % (Auto) 6.2, Eos % (Auto) 0.2, Baso % (Auto) 0.2, Neut # (Auto) 17.4 H, Lymph # (Auto) 1.5, [place] # (Auto) 1.3 H, Eos # (Auto) 0.1 , Baso # (Auto) 0.0, Total Counted 100, Neutrophils % (Manual) 91 H, Lymphocytes % (Manual) 4 L, Monocytes % (Manual) 5, Platelet Estimate Slight increase, RBC Morphology Normal 06/22/17 06:00: Sodium 133 L, Potassium 3.5, Chloride 98, Carbon Dioxide 26, Anion Gap 12.5, BUN 5 L, Creatinine 0.49 L, Estimated Creat Clear 160, Estimated GFR 187, Est GFR (
[2017-06-22 11:43] LABS: Erythrocyte Sedimentation Rate 51 mm/hr (0-15)
[2017-06-22 12:35] LABS: C-Reactive Protein 30.1 mg/L (0.0-0.9)
--- NOTE | 2017-06-22 12:50 | HMH.ACPN2 ---
Internal Medicine - PN: Subj *Date: 06/22/17 *Time: 12:50 Interval history: still with pain this am Exam Vital signs and Labs for Last 24 Hours: Temp Pulse Resp BP Pulse Ox 98.5 F 91 H 20 117/68 99 06/22/17 07:34 06/22/17 07:34 06/22/17 07:34 06/22/17 07:34 06/22/17 07:34 Laboratory Results - last 24 hr 06/22/17 06:00: WBC 20.2 H*, RBC 4.01 L, Hgb 12.2 L, Hct 36.7 L, MCV 91.4, MCH 30.4, MCHC 33.3, RDW 14.3, Plt Count 538 H, MPV 6.8 L, Neut % (Auto) 86.1 H, Lymph % (Auto) 7.3 L, [place] % (Auto) 6.2, Eos % (Auto) 0.2, Baso % (Auto) 0.2, Neut # (Auto) 17.4 H, Lymph # (Auto) 1.5, [place] # (Auto) 1.3 H, Eos # (Auto) 0.1, Baso # (Auto) 0.0, Total Counted 100, Neutrophils % (Manual) 91 H, Lymphocytes % (Manual) 4 L, Monocytes % (Manual) 5, Platelet Estimate Slight increase, RBC Morphology Normal 06/22/17 06:00: Sodium 133 L, Potassium 3.5, Chloride 98, Carbon Dioxide 26, Anion Gap 12.5, BUN 5 L, Creatinine 0.49 L, Estimated Creat Clear 160, Estimated GFR 187, Est GFR ( Amer) 226, Glucose 107 H, Calcium 8.3 L, Total Bilirubin 0.3, AST 23, ALT 59, Alkaline Phosphatase 153 H, Total Protein 5.8 L, Albumin 1.9 L, Globulin 3.9 H, Albumin/Globulin Ratio 0.5 L 06/22/17 06:00: ESR 51 H 06/22/17 06:00: C-Reactive Protein 30.1 H I & O for Last 24 hours: Intake & Output 06/20/17 06/21/17 06/22/17 06/23/17 11:59 11:59 11:59 11:59 Intake Total 687 / 687 720 / 720 2220 / 2220 Output Total 1100 / 1100 2050 / 2050 Balance 687 / 687 -380 / -380 170 / 170 Weight 126 lb 2 oz 126 lb 2 oz 127 lb 6 oz - Constitutional no acute distress - *Routine HEENT Exam Head: Present: normocephalic Eye: Present: EOMI, PERRL. Absent: conjunctival icterus ENT: Present: mucous membranes dry - *Routine Neck Exam Present: supple - *Routine Respiratory Exam Present: decreased breath sounds - *Routine Cardiovascular Exam Present: RRR, tachycardia - *Routine Abdominal Exam Present: soft, tenderness. Absent: distended, organomegaly - *Routine Extremities Exam Absent: calf tenderness - *Routine Skin Exam Present: intact - *Routine Neurological Exam Present: alert, oriented X3, CN II-XII intact - Routine Psychiatric Exam Present: normal affect Assessment and Plan (1) Weight loss Current visit: No Status: Acute Category: Medical Code(s): R63.4 - Abnormal weight loss (2) Ileitis Current visit: No Status: Acute Category: Medical Code(s): K52.9 - Noninfective gastroenteritis and colitis, unspecified (3) Diarrhea Current visit: No Status: Acute Qualifiers: Diarrhea type: unspecified type Qualified Code(s): R19.7 - Diarrhea, unspecified Category: Medical Code(s): R19.7 - Diarrhea, unspecified
[2017-06-22 15:38] VITALS: BMI 18.2
[2017-06-22 15:47] VITALS: BP 121/80; PULSE 92; RESP 20; TEMP 36.8; O2SAT 99
--- NOTE | 2017-06-22 15:50 | DIET.NUTRFU ---
Nutritional assessment completed. Pt with dx of severe protein calorie malnutriton. Unable to tolerate any nutritional supplements at this time due to abd pain and cramping. recommend consideration of TPN with gi rest until pt can tolerate oral intake.
--- NOTE | 2017-06-22 17:59 | HMH.GSCON ---
*Admission Date: 06/20/17 *Chief complaint: Abdominal pain, poor appetite/not eating, diarrhea *History of present illness: Patient is a 41-year-old white male from [place]. He had been scheduled for colonoscopy in 2015 to investigate possible source of 50 poound weight loss but never followed through. Patient states that at this time he has been ill for at least 6 weeks. He had presented to the emergency department at [facility] in May with abdominal pain and diarrhea. At that time he states that he was diagnosed with probable intestinal flu . He had ongoing progressive symptoms and presented to the emergency department here at [facility] on 06/02/17. At that time he was having right-sided and left-sided lower abdominal pain and diarrhea. He had a CT scan done without any contrast whatsoever which revealed findings of thickened distal small bowel consistent with ileitis versus inflammatory bowel disease. He was seen in his primary care provider's office shortly thereafter as an outpatient with ongoing stabbing sharp lower abdominal pain and diarrhea. He had been diagnosed with enteropathogenic E. coli at some point during his investigation. Due to ongoing symptoms he presented back to the emergency department on 06/12/17. CT scan at that time with contrast revealed some improvement in the thickened small bowel and the patient was admitted for inpatient management. He saw Dr. Titus at that time as an inpatient. He was hospitalized for 3 days and underwent repeat CT scan on 06/14/17 with contrast which revealed increasing mesenteric edema and increasing free fluid in the abdomen but no thickening of the terminal ileum. During that hospitalization he was seen by Dr. Titus. However, reportedly, the patient signed out AMA after 3 days. This was on 06/15/17. He had an outpatient appointment with gastroenterology on 06/19/17 but did not keep the appointment. That evening he presented back to the emergency department, in the evening of 06/19/17 with ongoing symptoms. He was admitted at that time and has remained an inpatient throughout the past 3 days. He has had continued symptoms of significant abdominal pain, cramping, diarrhea. He has had several loose stools daily characterized as loose liquid. He was seen by gastroenterology today who felt that he needed a colonoscopy as soon as feasible but gastroenterology was unable to perform this today and recommended surgical consultation for possible colonoscopy this week. Review of Systems - Constitutional Reports anorexia, Reports weakness, Reports weight loss - Eyes Denies loss of vision - ENT Denies abnormal hearing - *Cardiovascular Denies chest pain - *Respiratory Denies shortness of breath - *Gastrointestinal Reports abdominal pain, Reports bloating, Reports change in stools, Reports cramping, Reports loose stools, Denies bright, red blood in stools - *Genitourinary Denies difficulty urinating - *Musculoskeletal Denies joint pain - *Neurologic Reports weakness, Denies abnormal movements [facility] History Medical History: Reports:: Seizures Denies:: Cancer, Diabetes Mellitus Type 1, Diabetes Mellitus Type 2, MRSA Other Surgeries: Yes: Appendectomy Amputation: No Fractures: Yes - *Social History Smoking Status: Current every day smoker Tobacco Type: cigarettes # Packs/Day (cigarettes): 1 #Yrs smoked (if former smoker): 2 Alcohol Intake: never Alcohol Intake Frequency:: holidays/special occasions only Substance Use Type: marijuana Last Used Substance: hours (ago) Occupational Status: unemployed Housing: house Household Members: spouse - Psychiatric History Expresses thoughts of harming self/others: None Suicide Plan Description: No Plan *Family Hx:: No significant family history Meds Home Medications Medication Instructions Recorded Confirmed Type Phenytoin Sodium Extended 300 mg PO BID 06/12/17 06/19/17 History [Dilantin]
--- NOTE | 2017-06-22 18:07 | P.CONS_ITS ---
*Admission Date: 06/20/17 *Chief complaint: Abdominal pain, poor appetite/not eating, diarrhea *History of present illness: Patient is a 41-year-old white male from [place]. He had been scheduled for colonoscopy in 2015 to investigate possible source of 50 poound weight loss but never followed through. Patient states that at this time he has been ill for at least 6 weeks. He had presented to the emergency department at [facility] in May with abdominal pain and diarrhea. At that time he states that he was diagnosed with probable intestinal flu . He had ongoing progressive symptoms and presented to the emergency department here at [facility] on 06/02/17. At that time he was having right-sided and left- sided lower abdominal pain and diarrhea. He had a CT scan done without any contrast whatsoever which revealed findings of thickened distal small bowel consistent with ileitis versus inflammatory bowel disease. He was seen in his primary care provider's office shortly thereafter as an outpatient with ongoing stabbing sharp lower abdominal pain and diarrhea. He had been diagnosed with enteropathogenic E. coli at some point during his investigation. Due to ongoing symptoms he presented back to the emergency department on 06/12/17. CT scan at that time with contrast revealed some improvement in the thickened small bowel and the patient was admitted for inpatient management. He saw Dr. Titus at that time as an inpatient. He was hospitalized for 3 days and underwent repeat CT scan on 06/14/17 with contrast which revealed increasing mesenteric edema and increasing free fluid in the abdomen but no thickening of the terminal ileum. During that hospitalization he was seen by Dr. Titus. However, reportedly, the patient signed out AMA after 3 days. This was on . He had an outpatient appointment with gastroenterology on 06/19/17 but did not keep the appointment. That evening he presented back to the emergency department, in the evening of 06/19/17 with ongoing symptoms. He was admitted at that time and has remained an inpatient throughout the past 3 days. He has had continued symptoms of significant abdominal pain, cramping, diarrhea. He has had several loose stools daily characterized as loose liquid. He was seen by gastroenterology today who felt that he needed a colonoscopy as soon as feasible but gastroenterology was unable to perform this today and recommended surgical consultation for possible colonoscopy this week. Review of Systems - Constitutional Reports anorexia, Reports weakness, Reports weight loss - Eyes Denies loss of vision - ENT Denies abnormal hearing - *Cardiovascular Denies chest pain - *Respiratory Denies shortness of breath - *Gastrointestinal Reports abdominal pain, Reports bloating, Reports change in stools, Reports cramping, Reports loose stools, Denies bright, red blood in stools - *Genitourinary Denies difficulty urinating - *Musculoskeletal Denies joint pain - *Neurologic Reports weakness, Denies abnormal movements [facility] History Medical History: Reports:: Seizures Denies:: Cancer, Diabetes Mellitus Type 1, Diabetes Mellitus Type 2, MRSA Other Surgeries: Yes: Appendectomy Amputation: No Fractures: Yes - *Social History Smoking Status: Current every day smoker Tobacco Type: cigarettes # Packs/Day (cigarettes): 1 #Yrs smoked (if former smoker): 2 Alcohol Intake: never Alcohol Intake Frequency:: holidays/special occasions only Substance Use Type: marijuana Last Used Substance: hours (ago) Occupational Status: unemployed Housing: house Household Members: spous
--- NOTE | 2017-06-22 18:30 | PC.NURSE ---
PATIENT RESTING IN BED, HAS SOME RELIEF FROM THE MORPHINE, PATIENT STATES THAT IS JUST DONT LAST LONG. Chela BARTHOLOMEW CONSULTED WITH THE PATIENT PER DR. ALEXANDER'S REQUEST, NOT SURE IF HE IS GOING TO DO HIS COLONOSCOPY OR NOT. PATIENT WAS STARTED ON DONNATEL IV MEDICATION TODAY, HE HAS TOOK ONE DOSE AND REFUSED THE SECOND DOSE, STATES IT MADE HIS PAIN WORSE. PATIENT HAS TOLERATED HIS CLEARS TODAY.
--- NOTE | 2017-06-22 19:13 | PC.NURSE ---
report given to alena lyon
[2017-06-22 19:49] VITALS: BP 128/86; PULSE 96; RESP 18; TEMP 37.1; O2SAT 97
[2017-06-23] VITALS (8 sets, daily range): BP systolic 112–154; BP diastolic 68–95; PULSE 98–122; RESP 18–22; TEMP 36.9–37.6; O2SAT 96–98
--- NOTE | 2017-06-23 04:41 | PC.NURSE ---
PT HAS SLEPT AT INTERVALS. PT DOUBLED OVER AT TIMES WITH ABDOMINAL PAIN. MD CALLED AT 0300 DUE TO PT COMPLAINTS OF PAIN. RECEIVED ONE TIME ORDER FOR TORADOL. PT HAD EPISODE OF N/V AND ZOFRAN GIVEN. BOWEL SOUNDS POSITIVE. PT HAS BEEN GETTING MORPHINE 4MG IV EVERY 4 HOURS.
[2017-06-23 07:12] LABS: Basophils % 0.2 % (0.1-2.0); Eosinophils % 0.2 % (0.1-12.0); Hematocrit 37.2 % (42.0-52.0); Hemoglobin 12.1 g/dL (14.1-18.0); Lymphocytes # 1.3 K/mm3 (0.7-4.5); Lymphocytes % 6.9 K/mm3 (10-50); Mean Corpuscular HGB Conc 32.6 g/dL (31.8-35.4); Mean Corpuscular Hemoglobin 29.6 pg (27.0-31.2); Mean Corpuscular Volume 90.9 fl (80-94); Mean Platelet Volume 7.4 fl (7.4-10.4); Monocytes # 1.4 K/mm3 (0.1-1.0); Monocytes % 7.4 % (1.7-9.3); Neutrophils % 85.4 % (37.0-80.0); Platelet Count 550 K/mm3 (142-424); Red Blood Count 4.09 M/mm3 (4.60-6.20); Red Cell Distribution Width 14.1 % (11.5-17.5); White Blood Count 18.8 K/mm3 (4.8-10.8)
[2017-06-23 07:32] LABS: Alanine Aminotransferase 50 U/L (12-78); Albumin Level 1.8 gm/dL (3.4-5.0); Albumin/Globulin Ratio 0.5 (1.1-1.8); Alkaline Phosphatase 149 U/L (46-116); Anion Gap 11.8 mEq/L (5-15); Aspartate Amino Transferase 19 U/L (15-37); Bilirubin,Total 0.5 mg/dL (0.2-1.0); Blood Urea Nitrogen 6 mg/dL (7-18); Calcium 8.3 mg/dL (8.5-10.1); Carbon Dioxide 27 mmol/L (21.0-32.0); Chloride 97 mmol/L (98-107); Creatinine Clearance Estimated 159 mL/min (0-300); Creatinine,Serum 0.51 mg/dL (0.70-1.30); Estimated Glomerular Filt Rate 178 ml/min (>60); GFR (African American) 216 ML/MIN (>60); Glucose 114 mg/dL (74-106); Potassium 3.8 mmoL/L (3.5-5.1); Sodium 132 mmol/L (136-145); Total Protein,Serum 5.8 gm/dL (6.4-8.2)
[2017-06-23 07:37] LABS: MANUAL DIFFERENTIAL MANUAL DIFFERENTIAL (MANUAL DIFF)
[2017-06-23 08:29] LABS: Iron 8 ug/dL (38-169); UIBC 151 ug/dL (111-343)
[2017-06-23 08:31] LABS: Lymphocytes % 3 % (10-50); Monocytes % 7 % (2-9); Neutrophils % 86 % (42-76); Total Cells Counted 100
[2017-06-23 08:32] LABS: Platelet Estimate Moderate Increase
--- NOTE | 2017-06-23 09:02 | HMH.ACPN2 ---
Internal Medicine - PN: Subj *Date: 06/23/17 *Time: 09:02 Interval history: still with abd pain and dec po intake Exam Vital signs and Labs for Last 24 Hours: Temp Pulse Resp BP Pulse Ox 99.6 F 105 H 18 139/85 97 06/23/17 07:28 06/23/17 07:28 06/23/17 07:28 06/23/17 07:28 06/23/17 07:28 Laboratory Results - last 24 hr 06/22/17 06:00: ESR 51 H 06/22/17 06:00: C-Reactive Protein 30.1 H 06/23/17 06:30: WBC 18.8 H, RBC 4.09 L, Hgb 12.1 L, Hct 37.2 L, MCV 90.9, MCH 29.6, MCHC 32.6, RDW 14.1, Plt Count 550 H, MPV 7.4, Neut % (Auto) 85.4 H, Lymph % (Auto) 6.9 L, [place] % (Auto) 7.4, Eos % (Auto) 0.2, Baso % (Auto) 0.2, Neut # (Auto) 16.0 H, Lymph # (Auto) 1.3, [place] # (Auto) 1.4 H, Eos # (Auto) 0.0, Baso # (Auto) 0.0, Total Counted 100, Neutrophils % (Manual) 86 H, Band Neutrophils % 4.0, Lymphocytes % (Manual) 3 L, Monocytes % (Manual) 7, Platelet Estimate Moderate increase 06/23/17 06:30: Sodium 132 L, Potassium 3.8, Chloride 97 L, Carbon Dioxide 27, Anion Gap 11.8, BUN 6 L, Creatinine 0.51 L, Estimated Creat Clear 159, Estimated GFR 178, Est GFR ( Amer) 216, Glucose 114 H, Calcium 8.3 L, Total Bilirubin 0.5, AST 19, ALT 50, Alkaline Phosphatase 149 H, Total Protein 5.8 L, Albumin 1.8 L, Globulin 4.0 H, Albumin/Globulin Ratio 0.5 L I & O for Last 24 hours: Intake & Output 06/20/17 06/21/17 06/22/17 06/23/17 11:59 11:59 11:59 11:59 Intake Total 687 / 687 720 / 720 2220 / 2220 2374 / 2374 Output Total 1100 / 1100 2049 / 2049 1300 / 1300 Balance 687 / 687 -380 / -380 170 / 170 1074 / 1074 Weight 126 lb 2 oz 126 lb 2 oz 127 lb 6 oz 131 lb 2 oz - Constitutional no acute distress - *Routine HEENT Exam Head: Present: normocephalic Eye: Present: EOMI, PERRL ENT: Present: mucous membranes dry - *Routine Neck Exam Present: supple - *Routine Respiratory Exam Present: CTA bilaterally - *Routine Cardiovascular Exam Present: murmur - *Routine Abdominal Exam Present: tenderness - *Routine Extremities Exam Absent: full ROM - *Routine Skin Exam Present: intact - *Routine Neurological Exam Present: alert, oriented X3, CN II-XII intact - Routine Psychiatric Exam Present: normal affect Assessment and Plan (1) Weight loss Current visit: No Status: Acute Category: Medical Code(s): R63.4 - Abnormal weight loss (2) Ileitis Current visit: No Status: Acute Category: Medical Code(s): K52.9 - Noninfective gastroenteritis and colitis, unspecified (3) Diarrhea Current visit: No Status: Acute Qualifiers: Diarrhea type: unspecified type Qualified Code(s): R19.7 - Diarrhea, unspecified Category: Medical Code(s): R19.7 - Diarrhea, unspecified (4) Severe protein-calorie malnutrition Current visit: Yes Status: Acute Category: Medical Code(s): E43 - Unspecified severe protein-calorie malnutrition
--- NOTE | 2017-06-23 11:00 | PC.NURSE ---
CALLED DR. ALEXANDER'S OFFICE REGARDING THIS PATIENT, THE JUST CAME OUT OF THE ROOM AND WAS SPEAKING TO ME AND STARTED TO CRY, SHE IS FRUSTRATED, THE PATIENT IS HURTING, AND WANTING TO KNOW WHAT IS THE PLAN OF CARE FOR HIM, HIS MORPHINE 4MG IVP WAS CHANGED TO STADOL 1MG IV Q 4 AND THIS HELPED SOME BUT DIDN'T LAST LONG. THEY WANT SOME ANSWERS OR THEY WANT TO GO TO [place] FOR THEIR TREATMENT.
[2017-06-23 12:51] LABS: C-Reactive Protein 27.5 mg/L (0.0-0.9)
--- NOTE | 2017-06-23 13:05 | PC.NURSE ---
INTO SEE THE PATIENT, DISCUSSED HIS PLANS TO GET PATIENT IN AT TO SEE [facility] LOCOMOTIVE DRIVER. PATIENT MEDICATED FOR PAIN AT THIS TIME WITH STADOL 1MG IVP PER ORDER.
--- NOTE | 2017-06-23 18:23 | PC.NURSE ---
PATIENT STILL HAVING SEVERE ABD. PAIN, DR. ALEXANDER IS GETTING HIM TRANSFERRED TO , WE HAVE AN ACCEPTING DOCTOR I DONT KNOW THE NAME, WE ARE WAITING FOR A BED. HE IS NOW GETTING STADOL 1MG IVP Q 4 HOURS FOR PAIN INSTEAD OF THE MORPHINE, I DONT SEE MUCH RELIEF FROM THIS MED EITHER. PATIENT HAS MOANED AND ACHED ALL DAY, NOT REALLY TAKING MUCH PO, IF FLUIDS ARE NS @ 125ML/HR. I JUST MEDICATED THE PATIENT WITH SOME PHENERGAN FOR NAUSEA. VSS. BOWEL SOUNDS ARE HYPOACTIVE.
--- NOTE | 2017-06-23 19:33 | PC.NURSE ---
NURSE NOTIFIED OF PTS ELEVATED PULSE
--- NOTE | 2017-06-23 22:38 | PC.NURSE ---
STATED PT HAVING DIFFICULTY BREATHING. PT SITTING UP IN BED. NO ACUTE DISTRESS NOTED. RESPIRATIONS 20/MIN. BREATH EQUAL AND CLEAR THROUGHOUT. VERY GOOD AIR MOVEMENT HEARD. PT NOT COUGHING. PT STATED I PUKED AND THINK I SWALLOWED A LITTLE AND IT SCARED ME. I CHECKED OXYGEN SATURATION, 96% ON ROOM AIR. PT MOANS CONSTANTLY, NO MATTER WHAT MEDICATION HE IS GIVEN OR WHAT HE DOES. THIS IS HOW HE HAS BEEN WAS TOLD TO ME IN REPORT. PT ASKED ME, CAN'T YOU SNEAK AND GIVE ME A DOSE OF SOMETHING? I TOLD PT I COULD NOT DO THAT.
[2017-06-24 02:42] LABS: POC Glucose,Bedside 83 mg/dL (70-110)
--- NOTE | 2017-06-24 03:30 | P.PN_ITS ---
Acute Rapid Response Note - Subjective Date Responded: 06/24/17 Time Responded: 00:12 - Objective Findings: Vital Signs - Last 4 Hours Temperature 98.4 F 06/23/17 19:30 Temperature Source Oral 06/23/17 19:30 Pulse Rate 122 H 06/23/17 19:30 Respiratory Rate 22 06/23/17 19:30 Blood Pressure 154/95 06/23/17 19:30 Blood Pressure Mean 114 06/23/17 19:30 Blood Pressure Source Automatic Cuff 06/23/17 19:30 Blood Pressure Position Sitting 06/23/17 19:30 02 Sat by Pulse Oximetry 96 06/23/17 20:20 Oxygen Delivery Method 06/24/17 01:05 Oxygen Flow Rate (LPM) 2 06/24/17 01:05 Lab Results for Past 12 Hours 06/24/17 00:14: POC Glucose 83 My Orders 3 Category Date Time Status Chest XR -- portable [XR chest portable] Stat Exams 06/24/17 00:15 Ordered POC Glucose,Bedside Routine Lab 06/24/17 00:14 Completed 0.9 % Sodium Chloride [Sod Chlor 0.9% 250mL Bag] 250 ml Med 06/24/17 00:34 Discontinued IV As Directed Norepinephrine Bitartrate [Levophed 4mg/4mL vial] Med 06/24/17 00:34 Discontinued 2 mg IV .STK-MED ONE called code blue - pt had been having the vomiting and diarrhea and crampy abd pain and was awaiting transfer to - he was using bedside toilet and 0037 had sudden syncopal episode and code blue was called - acls protocol was used and pt was intubated and did not respond to acls efforts - pt was pronounced at 0037 Rapid Response Exam - General General appearance: alert, in distress, cachectic - Head Head exam: atraumatic - Eye Eye exam: Present: other (dil pupils). Absent: scleral icterus - Neck Neck exam: Present: trachea midline - Respiratory Respiratory exam: Present: respiratory distress (pt with no pulse and was in v fib and tach ) - Cardiovascular Cardiovascular exam: Present: other (no pulse) - Neurological Exam Neurological exam: Present: other (unresponsive) RR Procedures/Assess/Plan - Bedside Intubation Time Out Performed: No (code blue) Sedative: none Laryngoscope: Yao Tube size: 7 Tube uncuffed: No Secured location: teeth Placement confirmation: visualized tube passing through cords, equal breath sounds bilaterally, confirmation by capnometry Patient tolerated procedure intubation: no complications Intubation Complications: none - Additional Bedside Procedures NG tube insertion: No Patel catheter insert: Yes Peripheral IV access: Yes Chemical cardioversion: No Defibrillation times-: 3 CPR time (total min)-: 20 (1) Weight loss Current Visit: No Status: Acute Assessment and Plan: pt did not respond to acls measures and (2) Ileitis Current Visit: No Status: Acute Assessment and Plan: pt has cp arrest and - eval for gi illness not completed (3) Diarrhea Current Visit: No Status: Acute Qualifiers: Diarrhea type: unspecified type Qualified Code(s): R19.7 - Diarrhea, unspecified Assessment and Plan: pt - eval not complete (4) Severe protein-calorie malnutrition Current Visit: Yes Status: Acute Assessment and Plan: pt eval not complete
--- NOTE | 2017-06-24 03:37 | HMH.DEADDC ---
Discharge Sum: Prov - Provider Primary care physician: Jhony Roberson MD Consults: 06/22/17 14:33 Consult to General Surgery [CONS] Stat Consulting Provider: Lukasz Quintanilla Comment: pt with ongoing abd pain - needs colonoscopy pita - has seen gastro Discharge Sum: Summary - Date and Time Date of admission: 06/20/17 00:05 Date of : 06/24/17 Time of : 00:37 - Summary Details: this wm had been admitted second time for gi illness that manifested as abd crampy pain with assoc vomiting and diarrhea - he has e coli in prev eval but neg stool this visit with gi and surg consult - he was on ivf and pain meds with antiemetic but continued to have elevated inflammatory markers and leukocytosis and transfer was pending to - pt with sudden vascular collapse and failed to respond to acls code blue and at 0037- family present- - Additional Data Confirmation of as documented by pronouncing clinician: no pulse, no respirations, pupils fixed and dilated Family: at bedside Attending/PCP notified?: Yes Attending physician: Jhony Roberson MD Was code activated?: Yes Autopsy requested?: No (as per medical assistant supervisor) disability insurance claim examiner notified?: Yes Organ bank notified?: Yes Advance directives: No Hospice patient?: No
--- NOTE | 2017-06-24 03:43 | P.DN_ITS ---
Discharge Sum: Prov - Provider Primary care physician: Jhony Roberson MD Consults: 06/22/17 14:33 Consult to General Surgery [CONS] Stat Consulting Provider: Lukasz Quintanilla Comment: pt with ongoing abd pain - needs colonoscopy pita - has seen gastro Discharge Sum: Summary - Date and Time Date of admission: 06/20/17 00:05 Date of : 06/24/17 Time of : 00:37 - Summary Details: this wm had been admitted second time for gi illness that manifested as abd crampy pain with assoc vomiting and diarrhea - he has e coli in prev eval but neg stool this visit with gi and surg consult - he was on ivf and pain meds with antiemetic but continued to have elevated inflammatory markers and leukocytosis and transfer was pending to - pt with sudden vascular collapse and failed to respond to acls code blue and at 0037- family present- - Additional Data Confirmation of as documented by pronouncing clinician: no pulse, no respirations, pupils fixed and dilated Family: at bedside Attending/PCP notified?: Yes Attending physician: Jhony Roberson MD Was code activated?: Yes Autopsy requested?: No (as per hospital medical biller) field examiner notified?: Yes Organ bank notified?: Yes Advance directives: No Hospice patient?: No
--- NOTE | 2017-06-24 03:43 | HMH.DEATH ---
Pronouncement Note - Date and Time of Date of : 06/24/17 Time of : 00:37 - PCOD Preliminary cause of : Cardiac arrest - Additional Data Confirmation of : no pulse, no respirations, no heart sounds, pupils fixed and dilated Family: at bedside Attending/PCP notified?: Yes Attending physician: Jhony Roberson MD Was code activated?: Yes Autopsy requested?: No (per medical translator) mail distribution scheme examiner notified?: Yes Organ bank notified?: Yes Advance directives: No
[2017-06-24 04:55] VITALS: BP 66/38
--- NOTE | 2017-06-24 05:54 | PC.NURSE ---
: PT HAS C/O PAIN WITH PAIN MEDICATION GIVEN PER ORDERS, ALSO C/O NAUSEA&VOMITING AND MEDICATIONS FOR THIS GIVEN WELL. PT SEVERAL EPISODES DIARRHEA, SOME INCONTINENT; PT CONTINUES ON IV FLUIDS AT 125/HR. CALLED X2 LEFT MESSAGE FOR DR. ALEXANDER. WAS AWAITING CALL-BACK. MYSELF AND SRNA WERE IN PT'S ROOM CLEANING HIM UP FROM INCONTINENT EPISODE AND CHANGING LINENS. PT PLACED ON BEDSIDE COMMODE, TECH BESIDE HIM. I STEPPED OUTSIDE TO TAKE A CALL AND SRNA CALLED OUT FOR ME, PUT GRINDING TEETH, EYES ROLLING BACK IN BED. FLOOR WET WHERE HE VOMITED IN IT. CALL CHARGE NURSE, ELDON GOETZ FOR ASSIST, PT NON-RESPONSIVE, UNABLE TO GET TO BED, LOWERED TO FLOOR. CODE BLUE INITIATED.
--- NOTE | 2017-06-24 08:23 | PC.NURSE ---
NOTIFIED HOSPITAL PERSONNEL THAT THIS PT WOULD NO LONGER NEED A BED.
[2017-06-25 09:28] LABS: Saccharomyces cerevisiae, IgA 36.5 Units (0.0-24.9); Saccharomyces cerevisiae, IgG 35.3 Units (0.0-24.9)
[2017-06-25 09:29] LABS: HIV Screen 4th Generation wRfx Non Reactive (Non Reactive)
[2017-06-25 21:47] LABS: Iron Saturation 5 % (15-55)
== END 2017-06-24 06:05 | disposition expired | DRG 391 ==
LOC: ER 20:59 → 2ND 23:33
PROVIDERS: Nurse Practitioner Acute Care; Nurse Practitioner Family; Admitting Provider Family Medicine; Emergency Provider Emergency Medicine; Family Provider Physician Assistant; PCP Emergency Medicine; Visit Provider Emergency Medicine
DX: K52.9 Noninfective gastroenteritis and colitis, unspecified (principal); E43 Unspecified severe protein-calorie malnutrition; Z68.1 Body mass index [BMI] 19.9 or less, adult; F17.210 Nicotine dependence, cigarettes, uncomplicated; F12.10 Cannabis abuse, uncomplicated; R56.9 Unspecified convulsions; R55 Syncope and collapse; I46.9 Cardiac arrest, cause unspecified; Z86.73 Personal history of transient ischemic attack (TIA), and cerebral infarction without residual deficits; Z79.899 Other long term (current) drug therapy
CPT/HCPCS: 31500; 94002; 36415; 74176; 80053; 82150; 82962; 83550; 83690; 85007; 85025; 85651; 86140; 86256; 86671; 86703; 87507; 96374; 96375; 99284; G0432; J0595; J2405